=== PATIENT | male | born 1950 | race Caucasian/White ===

== ENCOUNTER 2021-12-08 16:15 | Outpatient (RCR) | payer MEDICARE, BC, SELFPAY | END 2021-12-09 14:01 | disposition home or self-care (01) | PROVIDERS: PCP Family Medicine; Visit Provider Physician Assistant | DX: M25.561 Pain in right knee (principal); Z51.89 Encounter for other specified aftercare; R26.9 Unspecified abnormalities of gait and mobility | CPT/HCPCS: 97110; 97116; 97140; 97161 ==

== ENCOUNTER 2022-03-23 11:15 | Outpatient (RCR) | payer MEDICARE, BC, SELFPAY | END 2022-06-14 08:57 | disposition home or self-care (01) | PROVIDERS: PCP Family Medicine; Visit Provider Physician Assistant | DX: M70.61 Trochanteric bursitis, right hip (principal) | CPT/HCPCS: 97035; 97110; 97140; 97161; 97535 ==

== ENCOUNTER 2022-08-15 15:18 | Outpatient (RCR) | payer MEDICARE, BC, SELFPAY | END 2022-11-15 15:34 | disposition home or self-care (01) | PROVIDERS: PCP Physician Assistant; Visit Provider Family Medicine | DX: M19.012 Primary osteoarthritis, left shoulder (principal); M75.42 Impingement syndrome of left shoulder; M25.512 Pain in left shoulder; M25.561 Pain in right knee; Z51.89 Encounter for other specified aftercare | CPT/HCPCS: 97110; 97162; 97535 ==

== ENCOUNTER 2022-11-11 07:51 | Outpatient (CLI) | payer MEDICARE, BC, SELFPAY | END 2022-11-11 07:52 | disposition home or self-care (01) | LOC: INJ CL 07:52 | PROVIDERS: PCP Physician Assistant; Visit Provider Family Medicine | DX: M54.16 Radiculopathy, lumbar region (principal); M51.36 Other intervertebral disc degeneration, lumbar region | CPT/HCPCS: 62323; J0702; Q9966 ==

== ENCOUNTER 2022-11-30 08:15 | Outpatient (RCR) | payer MEDICARE, BC, SELFPAY | END 2023-02-14 11:19 | disposition home or self-care (01) | PROVIDERS: PCP Physician Assistant; Visit Provider Family Medicine | DX: M47.816 Spondylosis without myelopathy or radiculopathy, lumbar region (principal); M54.16 Radiculopathy, lumbar region; M54.50 Low back pain, unspecified; Z74.09 Other reduced mobility; R53.1 Weakness; R29.3 Abnormal posture; Z51.89 Encounter for other specified aftercare | CPT/HCPCS: 97110; 97112; 97161; 97530 ==

== ENCOUNTER 2023-06-13 07:53 | Outpatient (CLI) | payer MEDICARE, BC, SELFPAY | END 2023-06-13 07:54 | disposition home or self-care (01) | LOC: INJ CL 07:54 | PROVIDERS: PCP Student in an Organized Health Care Education/Training Program; Visit Provider Family Medicine | DX: M54.16 Radiculopathy, lumbar region (principal); M51.36 Other intervertebral disc degeneration, lumbar region | CPT/HCPCS: 62323; J0702; Q9966 ==

== ENCOUNTER 2023-11-28 09:33 | Outpatient (CLI) | payer MEDICARE, BC, SELFPAY | END 2023-11-28 09:34 | disposition home or self-care (01) | LOC: INJ CL 09:33 | PROVIDERS: PCP Student in an Organized Health Care Education/Training Program; Visit Provider Family Medicine | DX: M54.16 Radiculopathy, lumbar region (principal); M51.36 Other intervertebral disc degeneration, lumbar region | CPT/HCPCS: 62323; J0702; Q9966 ==

== ENCOUNTER 2024-08-20 09:31 | Outpatient (CLI) | payer MEDICARE, BC, SELFPAY | END 2024-08-20 09:32 | disposition home or self-care (01) | PROVIDERS: PCP Student in an Organized Health Care Education/Training Program; Visit Provider Family Medicine | DX: M54.16 Radiculopathy, lumbar region (principal); M51.369 Other intervertebral disc degeneration, lumbar region without mention of lumbar back pain or lower extremity pain | CPT/HCPCS: 62323; J0702; Q9966 ==

== ENCOUNTER 2025-01-09 18:54 | Emergency (ER) | payer MEDICARE, BC, SELFPAY ==
--- OUTSIDE RECORDS SUMMARY | 2024-11-13 09:12 | XMS_ITS | Encounter Summary ---
Author Organization [facility] Address [address] [place] [id number] Care Team Providers Care Senior Editor Name Role Phone Elsewhere, Pcp Primary Care Provider Unavailabl e Reason for Referral * Radiation Therapy (Routine) - Authorized Specialty Diagnoses / Procedures Referred By Contac t Referred To Contact Diagnoses Malignant Neoplasm Of Larynx (HCC) Procedures Management Visit Phillip Estrada M.D. [address] [place] [address] Phone: tel: fax: [facility] Region Referral ID Status Reason Start Date Expiration Date V isits Requested Visits Authorized [id number] Authorized 09/30/2024 12/31/2025 10 10 Reason for Visit * Radiation Therapy (Routine) - Authorized Specialty Diagnoses / Procedures Referred By Contac t Referred To Contact Diagnoses Malignant Neoplasm Of Larynx (HCC) Procedures Management Visit Phillip Estrada M.D. [address] [place] [address] Phone: tel: fax: [facility] Region Referral ID Status Reason Start Date Expiration Date V isits Requested Visits Authorized [id number] Authorized 09/30/2024 12/31/2025 10 10 Encounter Details Date Type Department Care Team (Latest Contact Info) Description 11/13/2024 9:12 AM CDT - 12/08/2024 4:38 PM CDT Hospital Encounter Department of Radiation Oncology in [place], [place] [address] [place] [phone] Cm William M.D. [address] [place] [address] Malignant Neoplasm Of Larynx (HCC) Social History Tobacco Use Types Packs/Day Years Used Date Smoking Tobacco: Every Day Cigarettes 1.5 52 Started: 10/15/1969; Last attempted to quit: 10/15/2021 Smokeless Tobacco: Never Comments:quit a couple times . will quit before knee surgury Alcohol Use Standard Drinks/Week Comments Yes 4 (1 standard drink = 0.6 oz pur e alcohol) daily caffeine Humiliation, Afraid, Rape, and Kick questionnair e Answer Date Recorded Within the last year, have y ou been afraid of your partner or ex-partner? No 04/25/2022 Within the last year, have y ou been humiliated or emotionally abused in other ways by your partner or ex-partner? No Within the last year, have y ou been kicked, hit, slapped, or otherwise physically hurt by your partner or ex-partner? No 04/25/2022 Within the last year, have y ou been raped or forced to have any kind of sexual activity by your partner or ex-partner? No 04/25/2022 Hunger Vital Sign Answer Date Recorded Within the past 12 months, y ou worried that your food would run out before you got the money to buy more. Never true 04/25/19 23 Within the past 12 months, t he food you bought just didn't last and you didn't have money to get more. Never true 04/25/2022 PRAPARE - Transportation Answer Date Re corded In the past 12 months, has l ack of transportation kept you from medical appointments or from getting medications? No 12/2022 In the past 12 months, has l ack of transportation kept you from meetings, work, or from getting things needed for daily living? No 04/25/2022 Housing Stability Vital Sign Answer Alon e Recorded In the last 12 months, was t here a time when you were not able to pay the mortgage or rent on time? No 04/25/2022 In the last 12 months, how many places have you lived? 1 04/25/2022 In the last 12 months, was t here a time when you did not have a steady place to sleep or slept in a longterm (including now)? No 04/25/2022 Education Answer Date Recorded What is the highest level of school you have completed or the highest degree you have received? Associate degree: occupational, technical, or vocational program 04/25/2022 Sex and Gender Information Value Date Recorded Sex Assigned at Male 12/24/2020 7:50 PM CDT Legal Sex Male 9:57 AM DISTRICT RECRUITER Gender Identity Male 04/02/2020 9:30 AM DISTRICT RECRUITER Sexual Orientation Straight 04/02/2020 9: 30 AM DISTRICT RECRUITER documented as of this encounter Last Filed Vital Signs Vital Sign Reading Time Taken Comments Blood Pressure 105/67 11/13/2024 10:01 AM CDT Pulse 60 11/13/2024 10:01 AM CDT Temperature 35.9 C (96.7 F) 11/13/2024 10:01 AM CDT Respiratory Rate - - Oxygen Saturation - - Inhaled Oxygen Concentration - - Weight 91.3 kg (201 lb 4.5 oz) 11/13/2024 10:01 AM CDT Height - - Body Mass Index 27.87 10/17/2024 9:23 AM CDT documented in this encounter Medications at Time of Discharge acetaminophen (TYLENOL) 500 mg tablet Take 2 tablets (1,000 mg total) by mouth every 6 (six) hours. 11/05/2021 amiodarone (PACERONE) 200 mg tablet Take 200 mg by mouth every morning. 09/17/2018 amiodarone (Pacerone) 200 mg tablet Take 100 mg by mouth. 12/25/2023 atorvastatin (LIPITOR) 20 mg tablet Take 20 mg by mouth at bedtime. 03/26/2018 atorvastatin (Lipitor) 20 mg tablet Take 20 mg by mouth daily. 09/26/2024 cloNIDine (CATAPRES) 0.2 mg tablet Take 0.2 mg by mouth 4 (four) times a day. 630am, 3pm, bedtime, and 3am. 09/01/2018 diphenhydramine- lidocaine 2 %-antacid (mw) Take 5-10 mL by mouth 4 (four) times a day before meals and bedtime. Swallow solution. Do not eat or drink for 15-30 minutes after use. 480 mL 2 10/31/2024 HYDROcodone-acet aminophen ([place]) 5-325 mg per tablet Take 1 tablet by mouth 3 (three) times a day. 09/10/2024 LORazepam (Ativan) 1 mg tabletIndication s:Malignant Neoplasm Of Larynx (HCC) Take 1 tablet (1 mg total) by mouth as directed. Take 1 tablet 1 hour prior to radiation treatment. Take additional tablet 30 minutes later if desired affect not obtained. 28 tablet 10/01/2024 metoprolol tartrate (LOPRESSOR) 100 mg tablet Take 100 mg by mouth 2 (two) times a day. 0630 am and 3pm 09/09/2016 metoprolol tartrate (Lopressor) 100 mg tablet Take 100 mg by mouth 2 (two) times a day. 07/24/2024 naloxone (Narcan) 4 mg/actuation nasal spray Administer 1 spray (4 mg total) into nostril(s) every 2 (two) minutes as needed (overdose). 1 each 10/31/2024 NIFEdipine (ADALAT CC) 30 mg ER tablet Take 30-60 mg by mouth as directed. One 30 mg tablet in the AM at 630 am and two tablets (60 mg) in the PM at bedtime NIFEdipine XL (Procardia XL) 30 mg 24 hr tablet Take by mouth 1 tab in am, 2 tabs in pm 10/04/2023 oxyCODONE (Roxicodone) 10 mg IR tabletIndication s:Prolonged Acute Pain/Traumatic Injury Take 1 tablet (10 mg total) by mouth every 8 (eight) hours as needed for pain Indication: Prolonged Acute Pain/Traumatic Injury. 10 tablet 11/28/2024 warfarin (COUMADIN) 2 mg tablet Take 3 mg by mouth 5 (five) times a week. 4 mg on Monday and , 3 mg all other days 12/27/2018 documented as of this encounter Progress Notes * Cm William M.D. - 11/13/2024 9:45 AM CDT SUBJECTIVE REASON FOR VISIT Evaluation for side effects while receiving radiation treatment for 1. Malignant Neoplasm Of Larynx (HCC) SUPERVISED BY: Cm William M.D. ([id number]) HISTORY OF PRESENT ILLNESS Mr. Quique Bishop is a 74 y.o. male with squamous cell carcinoma of the larynx who is now undergoing radiation treatment. Treatment Course: 1xLarynx Plan ID Fractions Dose / Fraction (cGy) Dose Treated (cGy) Dose Planned (cGy) First Treatment Last Treatment Elapsed Days [id number] 10/14/2024 11/13/2024 Course Summary 10/14/2024 11/13/2024 The patient was seen and examined today with Dr. William. He reports feeling fairly well overall with moderate to severe fatigue. He reports increase in swallowing pain. He is using magic mouthwash and alternating tylenol and oxycodone and does find these helpful. He reports mild dry mouth. Continues experiencing hoarse voice. He is applying lotion to hisneck twice daily. He denies taste changes or other concerns. He is eating a mostly solid diet. PATIENT REPORTED SYMPTOM SCREEN FATIGUE (Scale: 0 = no fatigue; 10 = worst fatigue you can imagine): 7-8 PAIN (Scale: 0 = no pain; 10 = worst pain you can imagine): 6-7 OVERALL QUALITY OF LIFE (Scale: 0 = as bad as can be; 10 = as good as can be): 6 OBJECTIVE BP 105/67 (BP Location: Right arm, Patient Position: Sitting, Cuff Size: Regular) Pulse 60 Temp(!) 35.9 ??C (Temporal) Wt 91.3 kg BMI 27.87 kg/m?? WEIGHTS 10/17/24: 93.1 kg 10/24/24: 94.2 kg 10/31/24: 93.4 kg 11/07/24: 93.1 kg 11/13/24: 91.3 kg 10% weight loss threshold: 83.79 kg PHYSICAL EXAM General: Alert and oriented in no apparent distress. Skin: Erythema present to anterior neck, no signs of desquamation ASSESSMENT / PLAN #1 Stage I (cT1b, cN0, cM0) squamous cell carcinoma of the larynx #2 Radiation to larynx initiated on October 14, 2024; anticipated date of completion November 20, 2024. The patient is tolerating radiation treatment well overall. He is experiencing anticipated side effects including skin changes, fatigue, and increasing esophagitis. Discussed continued use of his pain meds as they are working. His weight has decreased since his last visit. He will meet with our die trouble shooter tomorrow. Dr. William was in for any questions or concerns. The patient was presented with apain diary which we will assess and discuss in a nurse visit this Monday. He will continue with radiation treatment as planned. He can contact our care team with any questions or concerns. Signed by: Ana Monroe R.N. 11/13/2024 10:03 AM CDT I saw and evaluated the patient and participated in the mancini portions of the service. I reviewed thedocumentation of Ana Monroe R.N. and agree with the findings and plan. The patient appears well on exam. He is tolerating treatment reasonably well with the increasing esophagitis. He will complete a pain diary and meet with our nurse on Monday. He will continue with treatment as planned. Signed by: Cm William M.D. 12/08/2024 4:38 PM CDT [facility] [address] [place] [id number] documented in this encounter Plan of Treatment Upcoming Encounters Date Type Department Care Team (Late st Contact Info) Description 03/05/2025 3:00 PM DISTRICT RECRUITER Appointment Department of Radiation Oncology in [address] [phone] Phillip Estrada M.D. [address] [place] [phone] Scheduled Orders Name Type Priority Associated Diagnoses Orde r Schedule Management Visit Radiation Oncology Routine Malignant Neoplasm Of Larynx (HCC) Once for 1 Occurrences starting 11/13/2024 until 11/13/2024 documented as of this encounter Visit Diagnoses Diagnosis Malignant Neoplasm Of Larynx (HCC) documented in this encounter Care Teams Senior Editor Relationship Specialty Start Date End Date Elsewhere, Pcp PCP - General Internal Medicine 10/28/21 documented as of this encounter
--- OUTSIDE RECORDS SUMMARY | 2024-11-27 10:00 | XMS_ITS | Encounter Summary ---
Author Organization [facility] Address [address] [place] [id number] Care Team Providers Care Health And Fitness Instructor Name Role Phone Elsewhere, Pcp Primary Care Provider Unavailabl e Reason for Referral * Outpatient (Routine) - Closed Specialty Diagnoses / Procedures Referred By Contac t Referred To Contact Phillip Estrada M.D. [address] [place] [phone] Phone: tel: fax: [facility] Region Referral ID Status Reason Start Date Expiration Date Visits Re quested Visits Authorized [id number] Closed 11/19/2024 05/21/2026 1 1 Scheduling Instructions Please schedule to RN Calendar Reason for Visit * Outpatient (Routine) - Closed Specialty Diagnoses / Procedures Referred By Contac t Referred To Contact Phillip Estrada M.D. [address] [place] [address] Phone: tel: fax: [facility] Region Referral ID Status Reason Start Date Expiration Date Visits Re quested Visits Authorized [id number] Closed 11/19/2024 05/21/2026 1 1 Encounter Details Date Type Department Care Team (Latest Contact Info) Description 11/27/2024 10:00 AM CDT - 11/27/2024 2:00 PM CDT Hospital Encounter Department of Radiation Oncology in [address] [place] [phone] Phillip Estrada M.D. [address] [place] [phone] Avril Vergara R.N. [address] [place] [address] Malignant Neoplasm Of Larynx (HCC) (Primary Dx) Social History Tobacco Use Types Packs/Day Years [...] place to sleep or slept in a penitentiary (including now)? No 04/25/2022 Education Answer Date Recorded What is the highest level of school you have completed or the highest degree you have received? Associate degree: occupational, technical, or vocational program 04/25/2022 Sex and Gender Information Value Date Recorded Sex Assigned at Male 12/24/2020 7:50 PM CDT Legal Sex Male 9:57 AM WEALTH MANAGEMENT ADVISOR Gender Identity Male 04/02/2020 9:30 AM WEALTH MANAGEMENT ADVISOR Sexual Orientation Straight 04/02/2020 9: 30 AM WEALTH MANAGEMENT ADVISOR documented as of this encounter Medications at Time of Discharge [...] use. 480 mL 2 10/31/2024 HYDROcodone-acet aminophen ([place]) 5-325 mg per tablet Take 1 tablet [...] in am, 2 tabs in pm 10/04/2023 warfarin (COUMADIN) 2 mg tablet Take 3 mg by mouth 5 (five) times a week. 4 mg on Monday and , 3 mg all other days 12/27/2018 oxyCODONE (Roxicodone) 5 mg immediate release tabletIndication s:Prolonged Acute Pain/Traumatic Injury Take 1 tablet (5 mg total) by mouth every 4 (four) hours as needed for pain Indication: Prolonged Acute Pain/Traumatic Injury. 30 tablet 11/25/2024 5 documented as of this encounter Progress Notes * Avril Vergara, RNevaN. - 11/27/2024 10:00 AM CDT PHONE-CALL FOLLOW UP HISTORY OF PRESENT ILLNESS Mr. Quique Bishop is a 74 y.o. male with larynx cancer. REASON FOR CALL 1 week post radiation assessment ASSESSMENT Patient reports that over the past week his skin has started to open and become more painful. He has initiated vinegar soaks and Xeroform/Aquaphor application. He notes that his skin is more painful than this throat at this time. He is currently taking Oxycodone 10 mg three times daily. The reportsthat this is working well to control his pain. When he is due for pain medication he rates his painan 8 out of 10 and then Oxycodone 10 mg brings down the pain to a 4 out of 10. He notes that a 4 out of 10 is a comfortable number for him. He occasionally takes Tylenol and Magic Mouthwash but feelshe does not get much pain relief from either of those medications. He continues to eat a regular/soft diet. He reports that lack of appetite is more of a deterrent that the pain. He is down 3-4 lbs from last week but reports that he has been forcing himself to eat even when he is not hungry and taking in adequate amounts of fluid. He reports an improvement to his hoarse voice. He will need a refill of his Oxycodone prior to the weekend as he is leaving for out town on December 01 and will be gone through December 05. He requests that his refill be sent to [facility] in [facility] PLAN Discussed with patient that he should try to take scheduled Tylenol not exceeding 4000 mg daily in addition to the Oxycodone to help maximize his pain control. He should also trial utilizing the Magic Mouthwash more frequently prior to meals up to [address] Estrada he will send the Oxycodone refill in on later afternoon or Monday morning. Patient continue with vinegars soak, Xeroform and Aquaphor until the skin is healed. He will contact our care team with any other questions or concerns. Disposition/Recommendation: self-care - appropriate at this time, patient encouraged to call back with questions Information/Education: patient/caller able to teach back Caller agreeable to plan of care: yes The following references were used: provider Dr. Estrada documented in this encounter Plan of Treatment Upcoming Encounters Date Type Department Care Team (Late st Contact Info) Description 03/05/2025 3:00 PM WEALTH MANAGEMENT ADVISOR Appointment Department of Radiation Oncology in [address] [phone] Phillip Estrada M.D. [address] [place] [address] Scheduled Referrals Name Type Priority Associated Diagnoses Orde r Schedule NonF2F phone visit Outpatient Referral Routine Once for 1 Occurrences starting 11/27/2024 until 11/27/2024 documented as of this encounter Visit Diagnoses Diagnosis Malignant Neoplasm Of Larynx (HCC)- Primary documented in this encounter Care Teams Health And Fitness Instructor Relationship Specialty Start Date End Date Elsewhere, Pcp PCP - General Internal Medicine 10/28/21 documented as of this encounter
--- OUTSIDE RECORDS SUMMARY | 2024-12-30 15:08 | XMS_ITS | Encounter Summary ---
Author Organization [facility] Address [address] [place] [address] Care Team Providers Care Dock Operator Name Role Phone Elsewhere, Pcp Primary Care Provider Unavailabl e Reason for Referral * Outpatient (Routine) - Authorized Specialty Diagnoses / Procedures Referred By Kemar montesinos Referred To Contact Radiation Oncology Linnea Brown APRN, C.N.P., D.N.P. [address] [place] [phone] Phone: tel: fax: Phillip Estrada M.D. [address] [place] [phone] Phone: tel: fax: Referral ID Status Reason Start Date Expiration Date V isits Requested Visits Authorized [id number] Authorized 12/30/2024 07/01/2026 [address] neck at [facility] * MRI/CAT/PET Scan (Routine) - Authorized Specialty Diagnoses / Procedures Referred By Contfarhan t Referred To Contact Radiology Diagnoses Malignant Neoplasm Of Larynx (HCC) Procedures CT Neck Soft Tissue with IV Contrast Linnea Brown APRN, C.N.P., D.N.P. [address] [place] [phone] Phone: tel: fax: [facility] Region Referral ID Status Reason Start Date Expiration Date V isits Requested Visits Authorized [id number] Authorized 12/30/2024 04/01/2026 1 1 * Outpatient (Routine) - Closed Specialty Diagnoses / Procedures Referred By Kemar montesinos Referred To Contact Radiation Oncology Phillip Estrada M.D. [address] [place] [phone] Phone: tel: fax: Phillip Estrada M.D. [address] [place] [phone] Phone: tel: fax: Referral ID Status Reason Start Date Expiration Date Visits Re quested Visits Authorized [id number] Closed 11/19/2024 05/21/2026 1 1 Reason for Visit * Outpatient (Routine) - Closed Specialty Diagnoses / Procedures Referred By Kemar montesinos Referred To Contact Radiation Oncology Phillip Estrada M.D. [address] [place] [phone] Phone: tel: fax: Phillip Estrada M.D. [address] [place] [phone] Phone: tel: fax: Referral ID Status Reason Start Date Expiration Date Visits Re quested Visits Authorized [id number] Closed 11/19/2024 05/21/2026 1 1 Encounter Details Date Type Department Care Team (Latest Contact Info) Description 12/30/2024 3:08 PM CDT - 01/01/2025 1:17 PM CDT Hospital Encounter Department of Radiation Oncology in [address] [place] [phone] Phillip Estrada M.D. [address] [place] [phone] Malignant Neoplasm Of Larynx (HCC) (Primary Dx) [...] place to sleep or slept in a custodial (including now)? No 04/25/2022 Education Answer Date Recorded What is the highest level of school you have completed or the highest degree you have received? Associate degree: occupational, technical, or vocational program 04/25/2022 Sex and Gender Information Value Date Recorded Sex Assigned at Male 12/24/2020 7:50 PM CDT Legal Sex Male 9:57 AM TEST AND TURN UP TECHNICIAN Gender Identity Male 04/02/2020 9:30 AM TEST AND TURN UP TECHNICIAN Sexual Orientation Straight 04/02/2020 9: 30 AM TEST AND TURN UP TECHNICIAN documented as of this encounter Last Filed Vital Signs Vital Sign Reading Time Taken Comments Blood Pressure 116/78 12/30/2024 3:28 PM CDT Pulse 77 12/30/2024 3:28 PM CDT Temperature 36.2 C (97.2 F) 12/30/2024 3:28 PM CDT Respiratory Rate - - Oxygen Saturation - - Inhaled Oxygen Concentration - - Weight 90.8 kg (200 lb 2.8 oz) 12/30/2024 3:28 P M CDT Height - - Body Mass Index 27.72 10/17/2024 9:23 AM CDT documented in this [...] use. 480 mL 2 10/31/2024 HYDROcodone-acet aminophen ([place]) 5-325 mg per tablet Take 1 tablet [...] as of this encounter Progress Notes * Linnea Brown APRN, C.N.P., D.N.P. - 12/30/2024 3:30 PM CDT SUBJECTIVE DIAGNOSIS 1. Malignant Neoplasm Of Larynx (HCC) SUPERVISED BY: Phillip Estrada M.D. HISTORY OF PRESENT ILLNESS Mr. Quique Bishop is a 74 y.o. male with squamous cell carcinoma of the larynx. He completed definitive radiation treatment in November 2024. He returns for follow up. His oncologic history is as follows: Oncology History Malignant Neoplasm Of Larynx (HCC) 07/18/2024 Other Patient evaluated by PCP for hoarseness of voice that began around [place]. Trialed 5 day course of antibiotics with no improvement. Referral to ENT 09/11/2024 Biopsy/Pathology Direct Laryngoscopy, rigid esophagoscopy laryngoscopy with examination of the postcricoid region, both piriform sinuses, supraglottic structures including epiglottis false vocal cords and arytenoids and oropharynx. All these areas were normal. The microscope was used to examine the glottis and fine there is granular red thickened tissue centered on the anterior commissure and more involvement of the left anterior one third of the true vocal cord. The carcinoma appeared to be involving the anterior commissure and both the left and right anterior 1/3 of the true vocal cords. There was more extension posteriorly on the left cord. Suspect there is some involvement of the middle one third of the left cord but not the middle one third of the right cord. No extension transglottic. Cords seem mobile with use of the suction and also he had no evidence of vocal cord paralysis on previous fiberoptic laryngoscopy Final Diagnosis A. Larynx, left true vocal cord anterior 1/3, biopsy: - Squamous cell carcinoma, keratinizing. B. Larynx, right vocal cord anterior 1/3, biopsy: - Squamous cell carcinoma, keratinizing. C. Larynx, right vocal cord middle 1/3, biopsy: - Keratotic squamous mucosa with moderate to severe dysplasia. D. Larynx, left vocal cord middle 1/3, biopsy: - Squamous cell carcinoma, keratinizing. E. Larynx, left vocal cord anterior 1/3, biopsy: - Squamous cell carcinoma, keratinizing. 09/23/[address] neck soft tissue Impression 1. No adenopathy. 2. Normal deep soft tissues of the neck. Specifically, close apposition of the vocal cords at the level of the glottis. No evidence of discrete soft tissue mass or abnormal enhancement of the mucosa or submucosa of the glottis or supraglottic and subglottic airways. 3. Cervical spondylosis CT chest Impression: No acute abnormality in the chest. No concerning pulmonary nodules. 10/14/2024 - 11/20/2024 Radiation Therapy Radiation Therapy Treatment Details (10/14/2024 - 11/20/2024) Site: Bilateral Larynx Technique: 3D DEMOLITIONIST Goal: Curative Dose: 6300 cGy Fraction: 28 INTERVAL HISTORY The patient was seen and examined today with Dr. Estrada. The patient reports doing well overall. He reports significant improvement since finishing radiation treatment. He is no longer having any pain or skin changes in the neck. His skin has completely healed from radiation dermatitis. He denies any swallowing pain currently. He had 1 episode of chokingon chicken a couple of weeks ago but this has recovered and no concerns outside of this incident. He also reports significant improvement in his voice which he is very happy with. He denies any dry mouth, taste changes, neck swelling, or neck range of motion concerns. His ECOG performance status is0. REVIEW OF SYSTEMS Review of systems was negative except as documented above. OBJECTIVE BP 116/78 (BP Location: Right arm, Patient Position: Sitting, Cuff Size: Regular) Pulse 77 Temp36.2 ??C (Temporal) Wt 90.8 kg BMI 27.72 kg/m?? PHYSICAL EXAM General: Patient is alert and oriented in no apparent distress. ASSESSMENT / PLAN #1 Stage I (cT1b, cN0, cM0) squamous cell carcinoma of the larynx #2 Radiation to larynx completed November 20, 2024. Current status: No evidence of disease after initial definitive treatment of localized disease. It was a pleasure to meet with Quique today. He is recovered well following radiation treatment now5 weeks ago. He really is not experiencing any more side effects at this time. We will see . Quique Bishop in a follow-up visit in [address] neck at [facility]. We will plan to start monitoring his thyroid levels 1 year posttreatment. Patient seen in collaboration with Dr. Estrada, please review his attestation for additional information. The patient was asked to contact us with questions or concerns. He verbally expressed his understanding ofthe plan. EDUCATION Ready to learn, no apparent learning barriers were identified; learning preferences include listening. Explained diagnosis and treatment plan; patient expressed understanding of the content. I personally spent 20 minutes in care of the patient today. Time includes both non face to face andface to face patient care. Signed by: Linnea Brown APRN, C.N.P., D.N.P. 12/30/2024 3:53 PM CDT [facility] [address] [place] [address] Cosigned by Phillip Estrada M.D. at 01/01/2025 1:17 PM CDT Associated attestation - Phillip Estrada M.D. - 01/01/2025 1:17 PM CDT I saw the patient with Linnea Brown and I agree with her note. Overall he is doing well in his voices improved even relative to what it was prior to treatment. Nosignificant dysphagia or odynophagia. I did perform a fiberoptic laryngoscopy via the right naris after application of 4% topical lidocaine spray. The visualized portions of the nasal cavity and nasopharynx are unremarkable. Visualized oropharynx was unremarkable. Base of tongue and vallecula and epiglottis were all within normal limits. The piriform sinuses and trend false vocal folds were visualized and there was no evidence of anymalignant lesion. The vocal cords were freely mobile bilaterally. No evidence of disease after initial definitive treatment of localized disease. Overall he is doing well and we will see him back with imaging in 2-3 months documented in this encounter Plan of Treatment Upcoming Encounters Date Type Department Care Team (Late st Contact Info) Description 03/05/2025 3:00 PM TEST AND TURN UP TECHNICIAN Appointment Department of Radiation Oncology in [place], [place] [address] [place] [phone] Phillip Estrada M.D. [facility] [place] [phone] Scheduled Orders Name Type Priority Associated Diagnoses Orde r Schedule Creatinine with Estimated GFR Lab Routine Malignant Neoplasm Of Larynx (HCC) Expected: 03/01/2025, Expires: 03/31/2026 CT Neck Soft Tissue with IV Contrast Imaging RAD - Routine (most inpatients and all outpatients) Malignant Neoplasm Of Larynx (HCC) Expected: 03/01/2025, Expires: 03/31/2026 Scheduled Referrals Name Type Priority Associated Diagnoses Order Schedule Radiation Oncology office visit (clinic) Outpatient Referral Routine Once for 1 Occurrences starting 12/30/2024 until 12/30/2024 Radiation Oncology office visit (clinic) Outpatient Referral Routine Expected: 03/05/2025, Expires: 03/31/2026 documented as of this encounter Visit Diagnoses Diagnosis Malignant Neoplasm Of Larynx (HCC)- Primary documented in this encounter Care Teams Dock Operator Relationship Specialty Start Date End Date Elsewhere, Pcp PCP - General Internal Medicine 10/28/21 documented as of this encounter
--- OUTSIDE RECORDS SUMMARY | 2025-01-09 18:57 | XMS_ITS | Encounter Summary ---
Author Organization [facility] Address [address] [place] [address] Care Team Providers Care Plate Printer Name Role Phone Festus Larsen DO Primary Care Provider [phone] Encounter Details Date Type Department Care Team ([facility] Contact Info) Description 01/03/2025 Results Follow-Up [facility] [address] [facility] [address] [place] [address] Lilia Leal RN [address] [facility] [address] [place] [address] Social History Tobacco Use Types Packs/Day Years Used Date Smoking Tobacco: Every Day Cigarettes 0.5 50 Smokeless Tobacco: Never Comments:quit off and on Alcohol Use Standard Drinks/Week Comments Yes 2 (1 standard drink = 0.6 oz pure alcohol) Alcoholic Drinks/day: 1-2 drinks per day AUDIT-C Answer Date Recorded Frequency of Alcohol Consumption Never 04/22/2019 Average Number of Drinks Not on file 020 Frequency of Binge Drinking Not on file 09/2019 Sex and Gender Information Value Date Recorded Sex Assigned at Not on file Legal Sex Male 7:11 PM EDT Gender Identity Not on file Sexual Orientation Not on file documented as of this encounter Plan of Treatment Upcoming Encounters Date Type Department Care Team ([facility] Contact Info) Description 01/10/2025 1:40 PM CDT Office Visit [facility] [address] [facility] [address] [place] [address] Cm Grififn MD [address] [place] [address] documented as of this encounter Visit Diagnoses Not on filedocumented in this encounter Care Teams Plate Printer Relationship Specialty Start Date End Date Festus Larsen DO [address] [place] [address] PCP - General Family Medicine 03/22/23 documented as of this encounter
--- OUTSIDE RECORDS SUMMARY | 2025-01-09 18:57 | XMS_ITS | Encounter Summary ---
Author Organization [facility] Address [address] [place] [address] Care Team Providers Care Area Field Person Name Role Phone Festus Larsen DO Primary Care Provider [phone] Reason for Visit * Reason Onset Date Comments Med Refill 01/01/2025 Encounter Details Date Type Department Care Team (Late st Contact Info) Description 01/01/2025 Ref[facility] [address] [facility] [address] [place] [address] Yoko Jordan, RN [address] [place] [address] Essential (primary) hypertension Social History Tobacco Use Types Packs/Day Years [...] on file documented as of this encounter Miscellaneous Notes * Telephone Encounter - Yoko Jordan RN - 01/01/2025 3:01 PM CDT RTC 01/10. Last prescribed by Ca. documented in this encounter Plan of Treatment Upcoming Encounters Date Type Department Care Team (Late st Contact Info) Description 01/10/2025 1:40 PM CDT Office Visit [facility] [address] [place] [phone] Cm Griffin MD [address] [place] [address] documented as of this encounter Visit Diagnoses Diagnosis Essential (primary) hypertension documented in this encounter Care Teams Area Field Person Relationship Specialty Start Date End Date Festus Larsen DO [address] [place] [address] PCP - General Family Medicine 03/22/23 documented as of this encounter
--- OUTSIDE RECORDS SUMMARY | 2025-01-09 18:57 | XMS_ITS | Clinical Summary ---
Author Organization [facility] Address [address] [place] [address] Phone Care Team Providers Care Drill Operator Name Role Phone Festus Larsen Primary Care Provider [phone] Allergies Active Allergy Reactions Criticality Noted Date Comments Ibuprofen Other (see comments) High 01/17/2014 States he was told years ago not to take it due to damage to kidney Ketorolac Other (see comments) High 05/01/2019 Pt is not allowed to take due to kidney damage. Medications atorvastatin (LIPITOR) 20 MG tablet Take 1 tablet by mouth 1 (one) time each day Active metoprolol tartrate (LOPRESSOR) 100 MG tablet Take 1 tablet by mouth 2 (two) times a day 7 Active warfarin (COUMADIN) 2 MG tablet Take 2 tablets by mouth Or as directed by INR. Active cholecalciferol (VITAMIN D-3) 25 MCG (1000 UT) tablet Take 2 tablets by mouth daily 8 Active cloNIDine (CATAPRES) 0.2 MG tablet Take 2 tablets by mouth in the morning and 2 tablets in the evening. 2 Active HYDROcodone-acet aminophen (NORCO) 5-325 MG per tablet Take 1-3 tablets by mouth every 6 (six) hours if needed for moderate pain Active amiodarone (PACERONE) 200 MG tablet 100 mg 4 Active NIFEdipine XL (PROCARDIA XL) 30 MG 24 hr tabletIndication s:Essential (primary) hypertension Take by mouth 1 tab in am, 2 tabs in pm 270 tablet 2 5 Active NIFEdipine XL (PROCARDIA XL) 30 MG 24 hr tabletIndication s:Essential (primary) hypertension Take by mouth 1 tab in am, 2 tabs in pm 270 tablet 3 4 01/02/20 25 Discontinu ed(Reorder (does not appear on AVS)) NIFEdipine XL (PROCARDIA XL) 30 MG 24 hr tabletIndication s:Essential (primary) hypertension Take by mouth 1 tab in am, 2 tabs in pm 270 tablet 3 5 01/04/20 25 Discontinu ed(Reorder (does not appear on AVS)) Active Problems Problem Noted Date Diagnosed Date Hyperparathyroidism due to renal insufficiency 0 04/22/2019 Hypertensive renal disease 04/22/2019 Vitamin D deficiency 06/13/2017 Chronic kidney disease stage 3 02/27/2014 Encounters Date Type Department Care Team Description 01/03/2025 Telephone [facility] [address] [place] [address] Lilia Leal RN 01/03/2025 Results Follow-Up [facility] [address] [place] [address] Lilia Leal RN 01/02/2025 Telephone [facility] [address] [place] [address] Gladis Rojas 01/01/2025 Refill [facility] [address] [facility] [address] [place] [address] Yoko Jordan, JARETT Essential (primary) hypertension 12/31/2024 Telephone [facility] [address] [facility] [address] [place] [address] Crystal Gladis 12/24/2024 Orders Only [facility] [address] [place] [address] Cm Griffin MD Stage 3b chronic kidney disease (HCC); Hypertensive renal disease 12/18/2024 Office Communication [facility] [address] [place] [address] Scott Wiley from Last 3 Months Immunizations Immunization Administration Dates Next Due Pfizer SARS-COV-2 01/11/2022,02/11/2021,07/11/19 21,06/19/2020 Pneumococcal Conjugate Pcv 20 09/26/2022 Family History Medical History Relation Comments Cancer Brother Cancer Mother Stroke Mother Cancer Sibling Relation Status Comments Brother Father Mother Sibling Social History Tobacco Use Types Packs/Day Years Used Date Smoking Tobacco: Every Day Cigarettes 0.5 50 Smokeless Tobacco: Never Tobacco Cessation:Ready to Q uit: Not Asked; Counseling Given: Not Answered Comments:quit off and on Alcohol Use Standard [...] on file Sexual Orientation Not on file Last Filed Vital Signs Vital Sign Reading Time Taken Comments Blood Pressure 118/76 06/21/2024 10:40 AM RICE DRIER OPERATOR Pulse 53 06/21/2024 10:40 AM RICE DRIER OPERATOR Temperature - - Respiratory Rate - - Oxygen Saturation 96% 01/04/2024 2:42 PM CDT Inhaled Oxygen Concentration - - Weight 94.3 kg (208 lb) 06/21/2024 10:40 AM RICE DRIER OPERATOR Height 182.9 cm (6') 01/04/2024 2:42 PM CDT Body Mass Index 28.21 01/04/2024 2:42 PM CDT Plan of Treatment Upcoming Encounters Date Type Department Care Team (Late st Contact Info) Description 01/10/2025 1:40 PM CDT Office Visit [facility] [address] [place] [phone] Cm Griffin MD [address] [place] [address] Health Maintenance Due Date Last Done Comments Colorectal Cancer Screening: Annual FOBT 2001 Colorectal Cancer Screening: Colonoscopy 2001 Colorectal Cancer Screening: Sigmoidoscopy 2001 Influenza Vaccine (#1) 2024 01/31/2023 Pneumococcal Vaccine: 50+ Years Completed Pneumococcal Vaccine: Peds ( 0 to 5 Years) and At-Risk Patients (6 to 49 Years) Discontinued 09/26/2022 Hepatitis B Vaccine Aged Out No longe r eligible based on patient's age to complete this topic Procedures Procedure Name Priority Date/Time Associated Diagnosis Comments CYSTATIN C WITH EGFR Routine 01/02/2025 1:35 PM CDT Stage 3b chronic kidney disease (HCC) Hypertensive renal disease URINE ALBUMIN / CREATININE RATIO Routine 01/02/2025 1:35 PM CDT Stage 3b chronic kidney disease (HCC) Hypertensive renal disease PTH, INTACT Routine 01/02/2025 1:35 PM CDT Stage 3b chronic kidney disease (HCC) Hypertensive renal disease HEMOGLOBIN Routine 01/02/2025 1:35 PM CDT Stage 3b chronic kidney disease (HCC) Hypertensive renal disease RENAL FUNCTION PANEL Routine 01/02/2025 1:35 PM CDT Stage 3b chronic kidney disease (HCC) Hypertensive renal disease from Last 3 Months Results * (ABNORMAL) Cystatin C with Estimated Glomerular Filtration Rate (eGFR), Serum (01/02/2025 1:35 PM CDT) Cystatin C 2.50(H) 0.52 - 1.16 mg/L [facility] eGFR (Calc) 22(L) > OR = 60 mL/min/1.73 m2 [facility] 01/02/2025 1:35 PM CDT 01/02/2025 1:36 PM CDT Narrative Resulting Agency Comment Performing Organization Information: Site ID: [id number] Name: [facility] [employer] Address: [address] [address] Director: Brisa Andersen MD Cm Griffin MD LAB BLOOD ORDERABLES Final Resul t Performing Organization Address [facility] Co de Phone Number [facility] [employer] [address] [place] [address] * (ABNORMAL) Urine Albumin / Creatinine Ratio (01/02/2025 1:35 PM CDT) Creatinine, Ur 115 20 - 320 mg/dL [facility] Urine Microalbumin 34.8 See Note: mg/dL [facility] Comment: Reference Range: Reference Range Not established Verified by repeat analysis. Microalb/Creat Ratio 303(H) <30 mg/g creat [facility] Comment: The ADA defines abnormalities in albumin excretion as follows: Albuminuria Category Result (mg/g creatinine) Normal to Mildly increased <30 Moderately increased 30-299 Severely increased > OR = 300 The ADA recommends that at least two of three specimens collected within a 3-6 month period be abnormal before considering a patient to be within a diagnostic category. Urine specimen (specimen) Urine specimen obtained by clean catch procedure / Unknown 01/02/2025 1:35 PM CDT 01/02/2025 1:36 PM CDT Narrative Resulting Agency Comment Performing Organization Information: Site ID: CB Name: [facility] Harrington Address: [address] [place] [phone] Director: Oni Sanchez Cm Griffin MD LAB URINE ORDERABLES Final Resul t Performing Organization Address [facility] Co de Phone Number [employer] [facility] [employer] [facility] [address] * Hemoglobin (01/02/2025 1:35 PM CDT) Hemoglobin 14.3 13.2 - 17.1 g/dL [facility] [employer] [facility] Blood specimen (specimen) Venous blood / Unknown 01/02/2025 1:35 PM CDT 01/02/2025 1:36 PM CDT Narrative Resulting Agency Comment Performing Organization Information: Site ID: CB Name: Deepak Harrington Address: [address] [place] [phone] Director: Oni Sanchez us Cm Griffin MD LAB BLOOD ORDERABLES Final Resul t Performing Organization Address City/[facility] Co de Phone Number [facility] [address] [place] [address] * (ABNORMAL) PTH, Intact (01/02/2025 1:35 PM CDT) Parathyroid Hormone, Intact 103(H) 16 - 77 pg/mL [facility] Comment: Interpretive Guide Intact PTH Calcium ------- Normal Parathyroid Normal Normal Hypoparathyroidism Low or Low Normal Low Hyperparathyroidism Primary Normal or High High Secondary High Normal or Low Tertiary High High Non-Parathyroid Hypercalcemia Low or Low Normal High Blood specimen (specimen) Venous blood / Unknown 01/02/2025 1:35 PM CDT 01/02/2025 1:36 PM CDT Narrative Resulting Agency Comment Performing Organization Information: Site ID: CB Name: Deepak Harrington Address: [address] [place] [phone] Director: Oni Sanchez us Cm Griffin MD LAB BLOOD ORDERABLES Final Resul t Performing Organization Address City/[facility]/ZIP Co de Phone Number [facility] [address] [place] [address] * (ABNORMAL) Renal Function Panel (01/02/2025 1:35 PM CDT) Glucose 97 65 - 99 mg/dL [facility] Comment: Fasting reference interval BUN 28(H) 7 - 25 mg/dL [facility] Creatinine 2.33(H) 0.70 - 1.28 mg/dL [facility] eGFR CKD-EPI CR 2020 29(L) > OR = 60 mL/min/1.7 3m2 [facility] BUN/Creatinine Ratio 12 6 - 22 (calc) [facility] Sodium 137 135 - 146 mmol/L [facility] Potassium 4.3 3.5 - 5.3 mmol/L [facility] Chloride 104 98 - 110 mmol/L [facility] Bicarbonate (CO2) 27 20 - 32 mmol/L [facility] Calcium 8.8 8.6 - 10.3 mg/dL [facility] Phosphorus 3.7 2.1 - 4.3 mg/dL [facility] Albumin 4.1 3.6 - 5.1 g/dL [facility] Blood specimen (specimen) Venous blood / Unknown 01/02/2025 1:35 PM CDT 01/02/2025 1:36 PM CDT Narrative Resulting Agency Comment Performing Organization Information: Site ID: CB Name: Deepak Harrington Address: [address] [place] [phone] Director: Oni Sanchez us Cm Griffin MD LAB BLOOD ORDERABLES Final Resul t [facility] Deepak Harrington [address] [place] [phone] from Last 3 Months Insurance [facility] Medicare Care Teams Drill Operator Relationship Specialty Start Date End Date Festus Larsen DO [address] [place] [address] PCP - General Family Medicine 03/22/23
--- OUTSIDE RECORDS SUMMARY | 2025-01-09 18:57 | XMS_ITS | Encounter Summary ---
Author Organization [facility] Address [address] [place] [address] Care Team Providers Care Radiology Practitioner Assistant Name Role Phone Festus Larsen DO Primary Care Provider [phone] Encounter Details Date Type Department Care Team ([facility] st Contact Info) Description 01/02/2025 Telephone [facility] [place] [address] [place] [address] Gladis Rojas [address] [place] [address] Social History Tobacco Use Types Packs/Day Years [...] encounter Miscellaneous Notes * Telephone Encounter - Peyton March - 01/02/2025 2:02 PM CDT [facility] Berg[facility] calling, need pvl orders, pt. currently in lab, provides 2 fax #'s,[phone] and [phone], faxed at this time * Telephone Encounter - RojasGladis ojeda - 01/02/2025 10:55 AM CDT Left a voicemail reminding patient to have previsit labs completed prior to their visit. Faxed order to Zully Bergman. Asked patient to call back if they would like the orders faxed elsewhere or if they would like to schedule with [facility] lab. documented in this encounter Plan of Treatment Upcoming Encounters Date Type Department Care Team (Late st Contact Info) Description 01/10/2025 1:40 PM CDT Office Visit [facility] [address] [place] [address] Cm Griffin MD [address] [place] [address] documented as of this encounter Visit Diagnoses Not on filedocumented in this encounter Care Teams Radiology Practitioner Assistant Relationship Specialty Start Date End Date Festus Larsen DO [address] [place] [address] PCP - General Family Medicine 03/22/23 documented as of this encounter
--- OUTSIDE RECORDS SUMMARY | 2025-01-09 18:57 | XMS_ITS | Encounter Summary ---
Author Organization [facility] Address [address] [place] [address] Care Team Providers Care Rn Ent Name Role Phone Festus Larsen DO Primary Care Provider [phone] Encounter Details Date Type Department Care Team (Late st Contact Info) Description 12/31/2024 Telephone [facility] [place] [address] [place] [address] Gladis Rojas [address] [place] [address] Social History Tobacco Use Types [...] encounter Miscellaneous Notes * Telephone Encounter - Gladis Rojas - 12/31/2024 9:21 AM CDT Spoke to pt regarding pvls.Pt states he has appt 01/02 documented in this encounter Plan of Treatment Upcoming Encounters Date Type Department Care Team (Late st Contact Info) Description 01/10/2025 1:40 PM CDT Office Visit [facility] [address] [place] [address] Cm Griffin MD [address] [place] [address] documented as of this encounter Visit Diagnoses Not on filedocumented in this encounter Care Teams Rn Ent Relationship Specialty Start Date End Date Festus Larsen DO [address] [place] [address] PCP - General Family Medicine 03/22/23 documented as of this encounter
--- OUTSIDE RECORDS SUMMARY | 2025-01-09 18:57 | XMS_ITS | Encounter Summary ---
Author Organization [facility] Address [address] [place] [address] Care Team Providers Care Family Court Registrar Name Role Phone Festus Larsen DO Primary Care Provider [phone] Encounter Details Date Type Department Care Team ([facility] st Contact Info) Description 01/03/2025 Telephone [facility] [place] [address] [facility] [address] [place] [address] Lilia Leal, RN [address] [facility] [address] [place] [address] Social History Tobacco Use Types [...] encounter Miscellaneous Notes * Telephone Encounter - Lilia Leal RN - 01/03/2025 11:23 AM CDT Patient is requesting refill on nifedipine. Refill completed per protocol. documented in this encounter Plan of Treatment Upcoming Encounters Date Type Department Care Team (Late st Contact Info) Description 01/10/2025 1:40 PM CDT Office Visit [facility] [address] [place] [address] Cm Griffin MD [address] [place] [address] documented as of this encounter Visit Diagnoses Diagnosis Essential (primary) hypertension documented in this encounter Care Teams Family Court Registrar Relationship Specialty Start Date End Date Festus Larsen DO [address] [place] [address] PCP - General Family Medicine 03/22/23 documented as of this encounter
--- OUTSIDE RECORDS SUMMARY | 2025-01-09 18:57 | XMS_ITS | Encounter Summary ---
Author Organization [facility] Address [address] [place] [address] Care Team Providers Care Speech Professor Name Role Phone Festus Larsen DO Primary Care Provider [phone] Encounter Details Date Type Department Care Team ([facility] st Contact Info) Description 12/18/2024 Office Communication [facility] [place] [address] [facility] [address] [place] [address] Scott Wiley [address] [place] [address] Social History Tobacco Use Types [...] encounter Miscellaneous Notes * Telephone Encounter - Scott Wiley - 12/18/2024 11:58 AM CDT Pt wants labs faxed to [facility]ERV[facility]ES for 01/10 appt. documented in this encounter Plan of Treatment Upcoming Encounters Date Type Department Care Team (Late st Contact Info) Description 01/10/2025 1:40 PM CDT Office Visit [facility] [place] [address] [place] [address] Cm Griffin MD [address] [place] [address] documented as of this encounter Visit Diagnoses Not on filedocumented in this encounter Care Teams Speech Professor Relationship Specialty Start Date End Date Festus Larsen DO [address] [place] [address] PCP - General Family Medicine 03/22/23 documented as of this encounter
--- OUTSIDE RECORDS SUMMARY | 2025-01-09 18:57 | XMS_ITS | Encounter Summary ---
Author Organization [facility] Address [address] [facility] [address] [place] [address] Care Team Providers Care Managed Care Liaison Name Role Phone Festus Larsen DO Primary Care Provider [phone] Encounter Details Date Type Department Care Team ([facility] Contact Info) Description 12/24/2024 Orders Only [facility] [place] [address] [facility] [address] [place] [address] Cm Griffin MD [address] [employer] [facility] [address] [place] [address] Stage 3b chronic kidney disease (HCC); Hypertensive renal disease Social History Tobacco Use Types Packs/Day Years [...] Upcoming Encounters Date Type Department Care Team ([facility] Contact Info) Description 01/10/2025 1:40 PM CDT Office Visit [facility] [address] [facility] [address] [place] [address] Cm Griffin MD [address] [place] [address] documented as of this encounter Procedures Procedure Name Priority Date/Time Associated Diagnosis [...] chronic kidney disease (HCC) Hypertensive renal disease documented in this encounter Results * (ABNORMAL) Cystatin C with Estimated Glomerular Filtration Rate (eGFR), Serum (01/02/2025 1:35 PM CDT) Cystatin C 2.50(H) 0.52 - 1.16 mg/L [facility] eGFR (Calc) 22(L) > OR = 60 mL/min/1.73 m2 [facility] 01/02/2025 1:35 PM CDT 01/02/2025 1:36 PM CDT Narrative Resulting Agency Comment Performing Organization Information: Site ID: [place] Name: [facility] Address: [address] [address] Director: Brisa Andersen MD us Cm Griffin MD LAB BLOOD ORDERABLES Final Resul t [facility] [address] [address] * (ABNORMAL) Urine Albumin / Creatinine Ratio (01/02/2025 1:35 PM CDT) Creatinine, Ur 115 20 - 320 mg/dL [facility] Urine Microalbumin 34.8 See Note: mg/dL [facility] Comment: Reference Range: Reference Range Not established Verified by repeat analysis. Microalb/Creat Ratio 303(H) <30 mg/g creat [facility] Len Comment: The ADA defines abnormalities in [...] Agency Comment Performing Organization Information: Site ID: Name: [facility] Address: [address] [place] [phone] Director: Oni Sanchez us Cm Griffin MD LAB URINE ORDERABLES Final Resul t [facility] [address] [place] [phone] * (ABNORMAL) PTH, Intact (01/02/2025 1:35 PM CDT) Parathyroid Hormone, Intact 103(H) 16 - 77 pg/mL [facility] Freye Comment: Interpretive Guide Intact PTH Calcium ------- [...] Site ID: CB Name: Deepak Harrington Address: [address] [place] [phone] Director: Oni Sanchez Cm Griffin MD LAB BLOOD ORDERABLES Final Resul t Performing Organization Address City/[facility]/ZIP Co de Phone Number [facility] Deepak Harrington [address] [place] [address] * Hemoglobin (01/02/2025 1:35 PM CDT) Hemoglobin 14.3 13.2 - 17.1 g/dL [facility] Har[facility] Blood specimen (specimen) Venous blood / Unknown 01/02/2025 1:35 PM CDT 01/02/2025 1:36 PM CDT Narrative Resulting Agency Comment Performing Organization Information: Site ID: CB Name: Deepak Harrington Address: [address] [place] [phone] Director: Oni Sanchez Cm Griffin MD LAB BLOOD ORDERABLES Final Resul t Performing Organization Address [facility] de Phone Number [facility] Deepak Harrington [address] [place] [address] * (ABNORMAL) Renal Function Panel (01/02/2025 1:35 PM CDT) Glucose 97 65 - 99 mg/dL [facility] Comment: Fasting reference interval BUN 28(H) 7 - 25 mg/dL [facility] Creatinine 2.33(H) 0.70 - 1.28 mg/dL [facility] eGFR CKD-EPI CR 2020 29(L) > OR = 60 mL/min/1.7 3m2 [facility] BUN/Creatinine Ratio 12 6 - 22 (calc) [facility] Sodium 137 135 - 146 mmol/L [facility] Potassium 4.3 3.5 - 5.3 mmol/L [facility] Chloride 104 98 - 110 mmol/L [facility] [...] Site ID: CB Name: Deepak Harrington Address: [address] [place] [phone] Director: Oni Sanchez us Cm Griffin MD LAB BLOOD ORDERABLES Final Resul t [facility] Deepak Harrington [address] [place] [phone] documented in this encounter Visit Diagnoses Diagnosis Stage 3b chronic kidney disease (HCC) Hypertensive renal disease documented in this encounter Care Teams Managed Care Liaison Relationship Specialty Start Date End Date Festus Larsen DO [address] [place] [address] PCP - General Family Medicine 03/22/23 documented as of this encounter
--- OUTSIDE RECORDS SUMMARY | 2025-01-09 18:58 | XMS_ITS | Encounter Summary ---
Author Organization [facility] Address [address] [place] [address]. [place] [address] Care Team Providers Care Production Expert Name Role Phone Yuniel Mcmillan MD Primary Care Provider [phone] Gene Lopez MD Unavailable [phone] Festus Larsen DO Primary Care Provider [phone] Encounter Details Date Type Department Care Team (Late st Contact Info) Description 12/14/2018 MyC Medical Advice [facility] Care Coordination, Ambulatory [address] [place] [address] Merle Medinaricrenard [facility] Social History Tobacco Use Types Packs/Day Years Used Date Smoking Tobacco: Never Assessed Sex and Gender Information Value Date Recorded Sex Assigned at Not on file Legal Sex Male 10:57 AM CDT Gender Identity Not on file Sexual Orientation Not on file documented as of this encounter Plan of Treatment Not on file documented as of this encounter Visit Diagnoses Not on filedocumented in this encounter Care Teams Production Expert Relationship Specialty Start Date End Date Yuniel Mcmillan MD [facility] [address] [place] [address] PCP - General 01/14/19 08/29/24 Festus Larsen DO [address] [place] [address] PCP - General 08/30/24 Gene Lopez MD [address] [facility] [address] [place] [address] Assigned Musculoskeletal Provider 02/07/20 07/18/20 documented as of this encounter
--- OUTSIDE RECORDS SUMMARY | 2025-01-09 18:58 | XMS_ITS ---
Author Organization [facility] Address [address] [place] [address] Care Team Providers Care Beet Flumer Name Role Phone Elsewhere, Pcp Primary Care Provider Unavailabl e Active Problems * This document contains information received from the source organization and may not represent a complete record from that organization. 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 Past Treatment and Therapy Plans No past plan information found. Past Radiation Episodes * 3D TUCKPOINTER CLEANER CAULKER: Bilateral LarynxOverview* First Treatment Date Last Treatment Date Treatment Site Technique Goal Episode Provider 10/14/2024 11/20/2024 Bilateral Larynx 3D TUCKPOINTER CLEANER CAULKER Curative * Linked Problems Malignant Neoplasm Of Larynx Treatment Courses* Course 1xLarynx 10/14/2024 - 11/20/2024 Treatment Period Fraction Dose Fractions Total Dose Plans Planned [id number] 10/14/2024 - 11/20/2024 225 cGy / 28 6 ,300 cGy Reference Points Delivered [id number] 10/14/2024 - 11/20/2024 6,300 cGy
--- OUTSIDE RECORDS SUMMARY | 2025-01-09 18:58 | XMS_ITS | Encounter Summary ---
Author Organization [facility] Address [address] [place] [address] Care Team Providers Care Octave Board Assembler Name Role Phone Yuniel Mcmillan MD Primary Care Provider [phone]- [phone] Gene Lopez MD Unavailable Festus Larsen DO Primary Care Provider [phone] Encounter Details Date Type Department Care Team (Late st Contact Info) Description 02/24/2020 [facility] [address] 4th [place] [address] Gene Lopez MD [address] [place] [address] Social History Tobacco Use Types Packs/Day Years Used Date Smoking Tobacco: Former Cigarettes Q uit: 04/27/2019 Smokeless Tobacco: Never Alcohol Use Standard Drinks/Week Comments Yes 0 (1 standard drink = 0.6 oz pur e alcohol) PHQ-2 Answer Date Recorded PHQ-2 Score 3 05/01/2019 Sex and Gender Information Value Date Recorded Sex Assigned at Not on file Legal Sex Male 10:57 AM CDT Gender Identity Not on file Sexual Orientation Not on file documented as of this encounter Plan of Treatment Not on file documented as of this encounter Visit Diagnoses Not on filedocumented in this encounter Additional Health Concerns Assessment Noted Time PHQ-9 Depression Total Score: 6 05/01/19 20 9:25 AM LOADING INSPECTOR documented as of this encounter Care Teams Octave Board Assembler Relationship Specialty Start Date End Date Yuniel Mcmillan MD [facility] [address] [place] [address] PCP - General 01/14/19 08/29/24 Festus Larsen DO [address] [place] [address] PCP - General 08/30/24 Gene Lopez MD [address] [facility] 200 [place] [address] Assigned Musculoskeletal Provider 02/07/20 07/18/20 documented as of this encounter
--- OUTSIDE RECORDS SUMMARY | 2025-01-09 18:58 | XMS_ITS | Encounter Summary ---
Author Organization [facility] Address [address] [place] [address] Care Team Providers Care Whizzer Operator Name Role Phone Yuniel Mcmillan MD Primary Care Provider [phone] Festus Larsen DO Primary Care Provider [phone] Encounter Details Date Type Department Care Team (Late st Contact Info) Description 08/04/2022 [facility] Medical Advice [address] [place] [address] Nicholas [facility] Social History Tobacco Use Types Packs/Day Years [...] Total Score: 6 05/01/19 20 9:25 AM CONTENT CHECKER documented as of this encounter Care Teams Whizzer Operator Relationship Specialty Start Date End Date Yuniel Mcmillan MD [facility] [address] [place] [address] PCP - General 01/14/19 08/29/24 [place] [address] [place] [address] PCP - General 08/30/24 documented as of this encounter
--- OUTSIDE RECORDS SUMMARY | 2025-01-09 18:58 | XMS_ITS | Encounter Summary ---
Author Organization [facility] Address [address] [place] [address] Care Team Providers Care Freight Car Inspector Name Role Phone Elsewhere, Pcp Primary Care Provider Unavailabl e Encounter Details Date Type Department Care Team (Late st Contact Info) Description 11/28/2024 Orders Only Department of Radiation Oncology in [place], [place] [address] [place] [phone] Phillip Estrada M.D. [address] [place] [address] Social History Tobacco Use Types Packs/Day Years [...] PM CDT Legal Sex Male 9:57 AM CELL TUBER HAND Gender Identity Male 04/02/2020 9:30 AM CELL TUBER HAND Sexual Orientation Straight 04/02/2020 9: 30 AM CELL TUBER HAND documented as of this encounter Plan of Treatment Upcoming Encounters Date Type Department Care Team (Late st Contact Info) Description 03/05/2025 3:00 PM CELL TUBER HAND Appointment Department of Radiation Oncology in [place], [place] [address] [place] [phone] Phillip Estrada M.D. [address] [place] [phone] documented as of this encounter Visit Diagnoses Not on filedocumented in this encounter Care Teams Freight Car Inspector Relationship Specialty Start Date End Date Elsewhere, Pcp PCP - General Internal Medicine 10/28/21 documented as of this encounter
--- OUTSIDE RECORDS SUMMARY | 2025-01-09 18:58 | XMS_ITS | Encounter Summary ---
Author Organization [facility] [place] Address [address] [place] [address]. [place] [address] Care Team Providers Care Contract Forester Name Role Phone Yuniel Mcmillan MD Primary Care Provider [phone]- [phone] Gene Lopez MD Unavailable [phone] Festus Larsen DO Primary Care Provider Encounter Details Date Type Department Care Team (Late st Contact Info) Description 06/25/[address] [facility] Pre[facility] Assessment Center [address] 5th [place] [address] Agustina Gong, BASIN TENDER [facility] [address] [facility] [address] [place] [address] Social History Tobacco Use Types Packs/Day Years [...] Total Score: 6 05/01/19 20 9:25 AM CINDER PITMAN documented as of this encounter Care Teams Contract Forester Relationship Specialty Start Date End Date Yuniel Mcmillan MD [facility] [address] [place] [address] PCP - General 01/14/19 08/29/24 Festus Larsen DO [address] [place] [address] PCP - General 08/30/24 Gene Lopez MD [address] [facility] 200 [place] [address] Assigned Musculoskeletal Provider 02/07/20 07/18/20 documented as of this encounter
--- OUTSIDE RECORDS SUMMARY | 2025-01-09 18:58 | XMS_ITS | Encounter Summary ---
Author Organization [facility] Address [address] [place] [address]. [place] [address] Care Team Providers Care Back End Developer Name Role Phone Yuniel Mcmillan MD Primary Care Provider [phone] Gene Lopez MD Unavailable [phone] Festus Larsen DO Primary Care Provider [phone] Encounter Details Date Type Department Care Team (Late st Contact Info) Description 12/09/2019 [facility] Preoperative Assessment Center [address] [facility] [address] 5th [place] [address] Agustina Gong, ECHO VASCULAR TECH [facility] [address] [facility] [address] [place] [address] Social History Tobacco Use Types [...] Total Score: 6 05/01/19 20 9:25 AM CLIENT REPORTING ASSOCIATE documented as of this encounter Care Teams Back End Developer Relationship Specialty Start Date End Date Yuniel Mcmillan MD [facility] [address] [place] [address] PCP - General 01/14/19 08/29/24 Festus Larsen DO [address] [place] [address] PCP - General 08/30/24 Gene Lopez MD [address] [facility] 200 [place] [address] Assigned Musculoskeletal Provider 02/07/20 07/18/20 documented as of this encounter
--- OUTSIDE RECORDS SUMMARY | 2025-01-09 18:58 | XMS_ITS | Encounter Summary ---
Author Organization [place] Address [address] [place] [address]. [place] [address] Care Team Providers Care Industrial Hygiene Technician Name Role Phone Yuniel Mcmillan MD Primary Care Provider [phone] Gene Lopez MD Unavailable [phone] Festus Larsen DO Primary Care Provider [phone] Encounter Details Date Type Department Care Team (Late st Contact Info) Description 06/25/2019 [facility] Medical Advice [facility] [address] [facility] [address] [place] [address] Gene Lopez MD [address] [place] [address] [address] [place] [address] Social History Tobacco Use Types Packs/Day [...] Total Score: 6 05/01/19 20 9:25 AM MEDIA REPORTER documented as of this encounter Care Teams Industrial Hygiene Technician Relationship Specialty Start Date End Date Yuniel Mcmillan MD [facility] [address] [place] [address] PCP - General 01/14/19 08/29/24 Festus Larsen DO [address] [place] [address] PCP - General 08/30/24 Gene Lopez MD [address] [place] [address] [address] [place] [address] Assigned Musculoskeletal Provider 02/07/20 07/18/20 documented as of this encounter
--- OUTSIDE RECORDS SUMMARY | 2025-01-09 18:58 | XMS_ITS | Encounter Summary ---
Author Organization [facility] Address [address] [place] [address]. [place] [address] Care Team Providers Care American Sign Language Interpreter Name Role Phone Yuniel Mcmillan MD Primary Care Provider [phone] Gene Lopez MD Unavailable [phone] Festus Larsen DO Primary Care Provider [phone] Encounter Details Date Type Department Care Team (Late st Contact Info) Description 03/02/2020 [facility] [address] [facility] [address] 5th [place] [address] Agustina Gong, SCREEN PRINTING STENCIL PREPARER [facility] [address] [facility] 450 [place] [address] Social History Tobacco Use Types [...] Total Score: 6 05/01/19 20 9:25 AM HAND TUFTER documented as of this encounter Care Teams American Sign Language Interpreter Relationship Specialty Start Date End Date Yuniel Mcmillan MD [facility] [address] [place] [address] PCP - General 01/14/19 08/29/24 Festus Larsen DO [address] [place] [address] PCP - General 08/30/24 Gene Lopez MD 24[address] [facility] 200 [place] [address] Assigned Musculoskeletal Provider 02/07/20 07/18/20 documented as of this encounter
--- OUTSIDE RECORDS SUMMARY | 2025-01-09 18:58 | XMS_ITS | Encounter Summary ---
Author Organization [facility] Address [facility] [place] [address] Care Team Providers Care Geomatics Professor Name Role Phone Yuniel Mcmillan MD Primary Care Provider [phone] Gene Lopez MD Unavailable Festus Larsen DO Primary Care Provider [phone] Encounter Details Date Type Department Care Team (Late st Contact Info) Description 02/20/2019 [facility] [address] [facility] 4th [place] [address] Gene Lopez MD [address] [place] [address] 200 [place] [address] Social History Tobacco Use Types Packs/Day Years Used Date Smoking Tobacco: Never Assessed PHQ-2 Answer Date Recorded PHQ-2 Score 3 01/14/2019 Sex and Gender Information Value Date Recorded Sex Assigned at Not on file Legal Sex Male 10:57 AM CDT Gender Identity Not on file Sexual Orientation Not on file documented as of this encounter Plan of Treatment Not on file documented as of this encounter Visit Diagnoses Not on filedocumented in this encounter Additional Health Concerns Assessment Noted Time PHQ-9 Depression Total Score: 4 01/16/20 19 7:04 AM CDT documented as of this encounter Care Teams Geomatics Professor Relationship Specialty Start Date End Date Yuniel Mcmillan MD [facility] [address] [place] [address] PCP - General 01/14/19 08/29/24 Festus Larsen DO [address] [place] [address] PCP - General 08/30/24 Gene Lopez MD 2450 [facility] 200 [place] [address] Assigned Musculoskeletal Provider 02/07/20 07/18/20 documented as of this encounter
--- OUTSIDE RECORDS SUMMARY | 2025-01-09 18:58 | XMS_ITS | Encounter Summary ---
Author Organization [facility] Address [address] [place] [address]. [place] [address] Care Team Providers Care Physician'S Assistant Name Role Phone Yuniel Mcmillan MD Primary Care Provider [phone] Gene Lopez MD Unavailable Festus Larsen DO Primary Care Provider [phone] Encounter Details Date Type Department Care Team (Late st Contact Info) Description 09/12/2019 [facility] Medical Advice [facility] [address] [facility] [address] [place] [address] Gene Lopez MD [address] [place] [address] [address] [place] [address] Social History Tobacco Use Types [...] Total Score: 6 05/01/19 20 9:25 AM SALES REVIEW CLERK documented as of this encounter Care Teams Physician'S Assistant Relationship Specialty Start Date End Date Yuniel Mcmillan MD [facility] [address] [place] [address] PCP - General 01/14/19 08/29/24 Festus Larsen DO [address] [place] [address] PCP - General 08/30/24 Gene Lopez MD [address] [place] [address] [address] [place] [address] Assigned Musculoskeletal Provider 02/07/20 07/18/20 documented as of this encounter
--- OUTSIDE RECORDS SUMMARY | 2025-01-09 18:58 | XMS_ITS | Clinical Summary ---
Author Organization [facility] [place] Address [address] [place] [address] Care Team Providers Care Public Information Coordinator Name Role Phone Festus Larsen Primary Care Provider [phone] Allergies Active Allergy Reactions Criticality Noted Date Comments Ibuprofen Unknown High 01/17/2014 States he was told years ago not to take it due to damage to kidney Ketorolac High 05/01/2019 Pt is not allowed to take due to kidney damage. Medications amiodarone (PACERONE/CODARONE ) 200 MG tablet Take 200 mg by mouth every morning 9 Active atorvastatin (LIPITOR) 20 MG tablet Take 20 mg by mouth every morning 8 Active cloNIDine (CATAPRES) 0.2 MG tablet Take 0.2 mg by mouth 2 times daily 9 Active metoprolol tartrate (LOPRESSOR) 100 MG tablet Take 100 mg by mouth 2 times daily 8 Active NIFEdipine ER OSMOTIC (NIFEDICAL XL) 30 MG 24 hr tablet TK 1 T PO IN THE MORNING THEN TK 2 TS PO HS 8 Active sildenafil (VIAGRA) 100 MG tablet Take 30min to 4 hours before sexual activity. Max 100mg/24hr. 8 Active warfarin ANTICOAGULANT (COUMADIN) 2 MG tablet Take 4mg on Mon, Wed, Fri, 3mg the rest of the week. 9 Active HYDROcodone-acetam inophen (NORCO) 5-325 MG tabletIndications: Pain Take 1 tablet by mouth 3 times daily. Active Active Problems Problem Noted Date Diagnosed Date Hyperparathyroidism due to renal insufficiency 0 04/22/2019 Hypertensive renal disease 04/22/2019 Bilateral primary osteoarthritis of knee 10/08/2 019 Overview (01/22/2019): Added automatically from request for surgery [id number] Vitamin D deficiency 06/13/2017 Adenomatous colon polyp 12/24/2014 Overview (04/29/2019): Colonoscopy 12/2014 polyp repeat in 5 years Pain medication agreement 10/28/2014 Anticoagulation monitoring, INR range 2-3 2014 Pure hypercholesterolemia 03/04/2014 Chronic renal insufficiency, stage III (moderate ) 02/27/2014 Tobacco abuse 02/27/2014 Paroxysmal atrial fibrillation 11/22/2012 Essential hypertension 08/17/2012 Primary osteoarthritis of left knee 08/17/2012 Overview (04/29/2019): S/P Surgery of left knee 2009. November 2017: Dr. Bobo gave hyaluronic acid injection? April 2018: Dr. Lechuga did Cortisone injection to bilateral knees. Family History Medical History Relation Comments Cancer Mother Cancer Other sibling Relation Status Comments Mother Other Social History Tobacco Use Types Packs/Day Years Used Date Smoking Tobacco: Every Day Cigarettes Last attempted to quit: 04/27/2019 Smokeless Tobacco: Never Tobacco Cessation:Ready to Q uit: Not Asked; Counseling Given: Not Answered Alcohol Use Standard Drinks/Week Comments Yes 0 (1 standard drink = 0.6 oz pur e alcohol) occasionally PHQ-2 Answer Date Recorded PHQ-2 Score 3 05/01/2019 Adolescent Education Answer Date Record ed Getting School Help Needed Not on file 01/06 Interpersonal Safety Answer Date Record ed Do you feel physically and e motionally safe where you currently live? Yes 09/11/2024 Within the past 12 months, h ave you been hit, slapped, kicked or otherwise physically hurt by someone? No 09/11/2024 Within the past 12 months, h ave you been humiliated or emotionally abused in other ways by your partner or ex-partner? No 09/11/2024 Sex and Gender Information Value Date Recorded Sex Assigned at Not on file Legal Sex Male 10:57 AM CDT Gender Identity Not on file Sexual Orientation Not on file Last Filed Vital Signs Vital Sign Reading Time Taken Comments Blood Pressure 144/79 09/11/2024 3:26 PM CDT Pulse 54 09/11/2024 3:26 PM CDT Temperature 36.6 C (97.9 F) 09/11/2024 3:26 PM CDT Respiratory Rate 16 09/11/2024 3:26 PM CDT Oxygen Saturation 100% 09/11/2024 3:26 PM CDT Inhaled Oxygen Concentration - - Weight 93.6 kg (206 lb 6.4 oz) 09/11/2024 11:10 AM CDT Height 182.9 cm (6') 09/11/2024 11:10 AM CDT Body Mass Index 27.99 09/11/2024 11:10 AM CDT Plan of Treatment Health Maintenance Due Date Last Done Comments ADVANCE CARE PLANNING 1952 ANNUAL REVIEW OF HM ORDERS [address]ONOGRAPHY 1952 DIABETES SCREENING 1952 FIT 1952 FLEX SIG 1952 LIPID 1952 MICROALBUMIN 1952 NICOTINE/TOBACCO CESSATION COUNSELING Q 1 YR 1952 sDNA (Cologuard) 1952 HEMOGLOBIN 1953 LUNG CANCER SCREENING 2002 MEDICARE ANNUAL WELLNESS VISIT 2017 FALL RISK ASSESSMENT 05/01/2020 05/01/2019 PHQ-2 (once per calendar year) 2024 05/01/2019, 05/01/2019, 01/14/2019, Additional history exists COVID-19 VACCINE ( season) 2024 03/25/2024, 01/31/2023, 01/11/2022, Additional history exists INFLUENZA VACCINE (#1) 2024 , 01/31/2023, 02/22/2022, Additional history exists RSV VACCINE (1 - 1-dose 75+ series) 10/31/2027 COLONOSCOPY 08/10/2030 08/10/2020 COLORECTAL CANCER SCREENING 08/10/2030 DTAP/TDAP/TD VACCINE (3 - Td or Tdap) 04/20/2033 04/20/2023, 07/06/2009, 07/06/2009 HEPATITIS C SCREENING Completed 04/18/2019 URINALYSIS Completed 05/01/2019 PNEUMOCOCCAL VACCINE 50+ YEARS Completed 09/26/2022, 03/26/2018, 03/31/2006 AORTIC ANEURYSM SCREENING (SYSTEM ASSIGNED) Completed 10/04/2022, 10/04/2022 ZOSTER VACCINE Completed 04/20/2023, 01/16, 03/09/2016 HPV VACCINE (No Doses Required) Completed MENINGITIS VACCINE Aged Out No longer eligible based on patient's age to complete this topic Procedures Procedure Name Priority Date/Time Associated Diagnosis Comments URINE MACROSCOPIC WITH REFLEX TO MICRO Routine 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 Glucose Urine Negative NEG^Negat gavin mg/dL 05/01/2019 12:44 PM [facility] Bilirubin Urine Negative NEG^Negat gavin 05/01/2019 12:44 PM [facility] Ketones Urine Negative NEG^Negat gavin mg/dL 05/01/2019 12:44 PM [facility] Specific [place] Urine 1.017 1.003 - 1.035 05/01/2019 12:44 PM [facility] Blood Urine Negative NEG^Negat gavin 05/01/2019 12:44 PM [facility] pH Urine 5.0 5.0 - 7.0 pH 05/01/2019 12:44 PM [facility] Protein Albumin Urine Negative NEG^Negat gavin mg/dL 05/01/2019 12:44 PM [facility] Urobilinogen mg/dL 0.0 0.0 - 2.0 mg/dL 05/01/2019 12:44 [address] DEL[address]ER [facility] Nitrite Urine Negative NEG^Negat gavin 05/01/2019 12:[address] Leukocyte Esterase Urine Negative NEG^Negat gavin 05/01/2019 12:[address] Source Midstream Urine 05/01/2019 12:26 [address] DEL[facility]ER 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
--- OUTSIDE RECORDS SUMMARY | 2025-01-09 18:58 | XMS_ITS | Encounter Summary ---
Author Organization [facility] Address [address] [place] [address]. 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
--- OUTSIDE RECORDS SUMMARY | 2025-01-09 18:58 | XMS_ITS | Clinical Summary ---
Author Organization [facility] Address [address] [place] [id number] Care Team Providers Care Retrimmer Name Role Phone Elsewhere, Pcp Primary Care Provider Unavailabl e Source Comments Patient records contain information from all sites at [facility]. For routine questions regarding patient records, call [phone] during business hours, M-F 8:00 AM - 5:00 PM Central Time. Record requests for emergency care only can be directed to [phone] at any time.[facility] Allergies Active Allergy Reactions Criticality Noted Date Comments Ibuprofen Other (see comments) High 01/17/2014 States he was told years ago not to take it due to damage to kidney Ketorolac Other (see comments) High 05/01/2019 Pt is not allowed to take due to kidney damage. Medications * This document contains information received from the source organization and may not represent a complete record from that organization. warfarin (COUMADIN) 2 mg tablet Take 3 mg by mouth 5 (five) times a week. 4 mg on Monday and , 3 mg all other days 9 Active metoprolol tartrate (LOPRESSOR) 100 mg tablet Take 100 mg by mouth 2 (two) times a day. 0630 am and 3pm 7 Active cloNIDine (CATAPRES) 0.2 mg tablet Take 0.2 mg by mouth 4 (four) times a day. 630am, 3pm, bedtime, and 3am. 9 Active atorvastatin (LIPITOR) 20 mg tablet Take 20 mg by mouth at bedtime. 8 Active amiodarone (PACERONE) 200 mg tablet Take 200 mg by mouth every morning. 9 Active NIFEdipine (ADALAT CC) 30 mg ER tablet Take 30-60 mg by mouth as directed. One 30 mg tablet in the AM at 630 am and two tablets (60 mg) in the PM at bedtime Active acetaminophen (TYLENOL) 500 mg tablet Take 2 tablets (1,000 mg total) by mouth every 6 (six) hours. 2 Active HYDROcodone-rohit taminophen ([place]) 5-325 mg per tablet Take 1 tablet by mouth 3 (three) times a day. 5 Active amiodarone (Pacerone) 200 mg tablet Take 100 mg by mouth. 4 Active atorvastatin (Lipitor) 20 mg tablet Take 20 mg by mouth daily. 5 Active metoprolol tartrate (Lopressor) 100 mg tablet Take 100 mg by mouth 2 (two) times a day. 5 Active NIFEdipine XL (Procardia XL) 30 mg 24 hr tablet Take by mouth 1 tab in am, 2 tabs in pm 4 Active LORazepam (Ativan) 1 mg tabletIndicatio ns:Malignant Neoplasm Of Larynx (HCC) Take 1 tablet (1 mg total) by mouth as directed. Take 1 tablet 1 hour prior to radiation treatment. Take additional tablet 30 minutes later if desired affect not obtained. 28 tablet 5 Active diphenhydramine -lidocaine 2 %-antacid (mw) Take 5-10 mL by mouth 4 (four) times a day before meals and bedtime. Swallow solution. Do not eat or drink for 15-30 minutes after use. 480 mL 2 5 Active naloxone (Narcan) 4 mg/actuation nasal spray Administer 1 spray (4 mg total) into nostril(s) every 2 (two) minutes as needed (overdose). 1 each 5 11/01/19 26 Active oxyCODONE (Roxicodone) 10 mg IR tabletIndicatio ns:Prolonged Acute Pain/Traumatic Injury Take 1 tablet (10 mg total) by mouth every 8 (eight) hours as needed for pain Indication: Prolonged Acute Pain/Traumatic Injury. 10 tablet 5 Active Active Problems Problem Noted Date Diagnosed Date Malignant Neoplasm Of Larynx 09/13/2024 Cancer Staging:Clinical:Stage I(cT1b, cN0, cM0) - Unsigned Primary Osteoarthritis Knee Right 12/29/2020 Overview (03/24/2021): Added automatically from request for surgery [id number] Arthritis Knee Left 04/03/2020 Overview (04/03/2020): Added automatically from request for surgery [id number] Pure Hypercholesterolemia 03/04/2014 Chronic Kidney Disease (CKD) , Stage 3b Glomerular Filtration Rate (GFR) 30 To 44 02/27/2014 Atrial Fibrillation Paroxysmal 11/22/2012 Renal Disease Hypertension NOS Encounters * This document contains information received from the source organization and may not represent a complete record from that organization. Date Type Department Care Team Description 12/30/2024 3:08 PM CDT - 01/01/2025 1:17 PM CDT Hospital Encounter Department of Radiation Oncology in [address] [address] Phillip Estrada M.D. Malignant Neoplasm Of Larynx (HCC) (Primary Dx) 11/28/2024 Orders Only Department of Radiation Oncology in [address] [address] Phillip Estrada M.D. 11/27/2024 10:00 AM CDT - 11/27/2024 2:00 PM CDT Hospital Encounter Department of Radiation Oncology in [address] [address] Phillip Estrada M.D. Retterath, Chelsey A RNevaN. Malignant Neoplasm Of Larynx (HCC) (Primary Dx) 11/20/2024 9:09 AM CDT - 11/20/2024 11:59 PM CDT Hospital Encounter Department of Radiation Oncology in [address] [address] Phillip Estrada M.D. Discharge Disposition: Home or Self Care 11/20/2024 Documentation Department of Radiation Oncology in [address] [address] Phillip Estrada M.D. 11/19/2024 9:09 AM CDT - 11/19/2024 1:32 PM CDT Hospital Encounter Department of Radiation Oncology in [address] [address] Phillip Estrada M.D. Malignant Neoplasm Of Larynx (HCC) 11/19/2024 9:08 AM CDT Hospital Encounter Department of Radiation Oncology in [address] [address] Phillip Estrada M.D. Discharge Disposition: Home or Self Care 11/18/2024 9:11 AM CDT - 11/18/2024 11:59 PM CDT Hospital Encounter Department of Radiation Oncology in [address] [address] Phillip Estrada M.D. Discharge Disposition: Home or Self Care 11/17/2024 Refill Department of Radiation Oncology in [address] [address] Linnea Brown APRN, C.N.P., D.N.P. Med Refill 11/15/2024 9:10 AM CDT - 11/15/2024 10:11 AM CDT Hospital Encounter Department of Radiation Oncology in [address] [address] Phillip Estrada M.D. Moorhouse, Alexis E, RNevaN. Malignant Neoplasm Of Larynx (HCC) (Primary Dx) 11/15/2024 9:10 AM CDT - 11/15/2024 11:59 PM CDT Hospital Encounter Department of Radiation Oncology in [address] [address] Phillip Estrada M.D. Discharge Disposition: Home or Self Care 11/14/2024 9:10 AM CDT - 11/14/2024 10:20 AM CDT Hospital Encounter Department of Radiation Oncology in [address] [address] Phillip Estrada M.D. von Ruden, Kristi A, JHOANAN, LD Malignant Neoplasm Of Larynx (HCC) (Primary Dx) 11/14/2024 9:10 AM CDT - 11/14/2024 11:59 PM CDT Hospital Encounter Department of Radiation Oncology in [address] [address] Phillip Estrada M.D. Discharge Disposition: Home or Self Care 11/13/2024 9:12 AM CDT - 12/08/2024 4:38 PM CDT Hospital Encounter Department of Radiation Oncology in [address] [address] Cm William M.D. Malignant Neoplasm Of Larynx (HCC) 11/13/2024 9:12 AM CDT - 11/13/2024 11:59 PM CDT Hospital Encounter Department of Radiation Oncology in [address] [address] Phillip Estrada M.D. Discharge Disposition: Home or Self Care 11/12/2024 9:10 AM CDT - 11/12/2024 11:59 PM CDT Hospital Encounter Department of Radiation Oncology in [address] [address] Phillip Estrada M.D. Discharge Disposition: Home or Self Care 11/11/2024 9:13 AM CDT - 11/11/2024 11:59 PM CDT Hospital Encounter Department of Radiation Oncology in [address] [address] Phillip Estrada M.D. Discharge Disposition: Home or Self Care 11/08/2024 9:13 AM CDT - 11/08/2024 11:59 PM CDT Hospital Encounter Department of Radiation Oncology in [address] [address] Phillip Estrada M.D. Discharge Disposition: Home or Self Care 11/07/2024 9:15 AM CDT - 11/07/2024 11:39 AM CDT Hospital Encounter Department of Radiation Oncology in [address] [address] Phillip Estrada M.D. Malignant Neoplasm Of Larynx (HCC) 11/07/2024 9:14 AM CDT Hospital Encounter Department of Radiation Oncology in [address] [address] Phillip Estrada M.D. Discharge Disposition: Home or Self Care 11/06/2024 9:14 AM CDT - 11/06/2024 11:59 PM CDT Hospital Encounter Department of Radiation Oncology in [address] [address] Phillip Estrada M.D. Discharge Disposition: Home or Self Care 11/05/2024 9:14 AM CDT - 11/05/2024 11:59 PM CDT Hospital Encounter Department of Radiation Oncology in [address] [address] Phillip Estrada M.D. Discharge Disposition: Home or Self Care 11/04/2024 9:15 AM CDT - 11/04/2024 11:59 PM CDT Hospital Encounter Department of Radiation Oncology in [address] [address] Phillip Estrada M.D. Discharge Disposition: Home or Self Care 11/01/2024 9:15 AM CDT - 11/01/2024 11:59 PM CDT Hospital Encounter Department of Radiation Oncology in [address] [address] Phillip Estrada M.D. Discharge Disposition: Home or Self Care 10/31/2024 9:37 AM CDT - 10/31/2024 10:29 AM CDT Hospital Encounter Department of Radiation Oncology in [address] [address] Phillip Estrada M.D. von Ruden, Kristi A, ALEXANDRE, LD Malignant Neoplasm Of Larynx (HCC) 10/31/2024 9:16 AM CDT - 10/31/2024 9:36 AM CDT Hospital Encounter Department of Radiation Oncology in [address] [address] Phillip Estrada M.D. Malignant Neoplasm Of Larynx (HCC) 10/31/2024 9:16 AM CDT - 10/31/2024 9:36 AM CDT Hospital Encounter Department of Radiation Oncology in [address] [address] Phillip Estrada M.D. Discharge Disposition: Home or Self Care 2024 9:16 AM CDT - 2024 11:59 PM CDT Hospital Encounter Department of Radiation Oncology in [address] [address] Phillip Estrada M.D. Discharge Disposition: Home or Self Care 10/29/2024 9:13 AM CDT - 10/29/2024 11:59 PM CDT Hospital Encounter Department of Radiation Oncology in [address] [address] Phillip Estrada M.D. Discharge Disposition: Home or Self Care 10/28/2024 9:14 AM CDT - 10/28/2024 11:59 PM CDT Hospital Encounter Department of Radiation Oncology in [address] [address] Phillip Estrada M.D. Discharge Disposition: Home or Self Care 10/25/2024 9:14 AM CDT - 10/25/2024 11:59 PM CDT Hospital Encounter Department of Radiation Oncology in [address] [address] Phillip Estrada M.D. Discharge Disposition: Home or Self Care 10/24/2024 9:17 AM CDT - 10/28/2024 1:42 PM CDT Hospital Encounter Department of Radiation Oncology in [address] [address] Phillip Estrada M.D. Malignant Neoplasm Of Larynx (HCC) 10/24/2024 9:16 AM CDT Hospital Encounter Department of Radiation Oncology in [address] [address] Phillip Estrada M.D. Discharge Disposition: Home or Self Care 10/23/2024 1:00 PM CDT Virtual Visit Department of Oncology in [place] [address] [place] [address] Phillip Estrada M.D. Wacholz, Abigail M, M.S.W., L.I.C.S.W. Malignant Neoplasm Of Larynx (HCC) 10/23/2024 9:12 AM CDT - 10/23/2024 11:59 PM CDT Hospital Encounter Department of Radiation Oncology in [address] [address] Phillip Estrada M.D. Discharge Disposition: Home or Self Care 10/22/2024 9:12 AM CDT - 10/22/2024 11:59 PM CDT Hospital Encounter Department of Radiation Oncology in [address] [address] Phillip Estrada M.D. Discharge Disposition: Home or Self Care 10/21/2024 9:12 AM CDT - 10/21/2024 11:59 PM CDT Hospital Encounter Department of Radiation Oncology in [address] [address] Phillip Estrada M.D. Discharge Disposition: Home or Self Care 10/17/2024 9:11 AM CDT - 10/17/2024 10:32 AM CDT Hospital Encounter Department of Radiation Oncology in [address] [address] Phillip Estrada M.D. Eby, Courtney C, RDN Malignant Neoplasm Of Larynx (HCC) 10/17/2024 9:11 AM CDT - 10/21/2024 9:11 AM CDT Hospital Encounter Department of Radiation Oncology in [address] [address] Phillip Estrada M.D. Malignant Neoplasm Of Larynx (HCC) 10/17/2024 9:10 AM CDT Hospital Encounter Department of Radiation Oncology in [address] [address] Phillip Estrada M.D. Discharge Disposition: Home or Self Care 10/16/2024 2:55 PM CDT - 10/16/2024 11:59 PM CDT Hospital Encounter Department of Radiation Oncology in [address] [address] Phillip Estrada M.D. Discharge Disposition: Home or Self Care 10/16/2024 8:39 AM CDT - 10/16/2024 2:54 PM CDT Hospital Encounter Department of Radiation Oncology in [address] [address] Phillip Estrada M.D. Moorhouse, Alexis E, RNevaNNeva Malignant Neoplasm Of Larynx (HCC) (Primary Dx) 10/16/2024 8:37 AM CDT - 10/16/2024 8:38 AM CDT Hospital Encounter Department of Radiation Oncology in [address] [address] Phillip Estrada M.D. Discharge Disposition: Home or Self Care 10/15/2024 9:10 AM CDT - 10/15/2024 11:59 PM CDT Hospital Encounter Department of Radiation Oncology in [address] [address] Phillip Estrada M.D. Discharge Disposition: Home or Self Care 10/14/2024 10:22 AM CDT - 10/14/2024 11:59 PM CDT Hospital Encounter Department of Radiation Oncology in [place], [place] [address] [place] [address] Phillip Estrada M.D. Discharge Disposition: Home or Self Care from Last 3 Months Immunizations Immunization Administration Dates Next Due HZV (ZOSTAVAX) 03/09/2016 Influenza TIV (IM) 04/18/2019,03/26/2018 Influenza, Quadrivalent, Adjuvanted, Preservativ e Free 04/23/2020 Influenza, Seasonal, Injectable 12/28/2011 Influenza, Unspecified 01/15/2010 PCV13 03/26/2018 PPSV23 03/31/2006 Td (Adult), adsorbed 07/06/2009 Tdap 07/06/2009 influenza vaccine quad (FLUZ ONE/FLUARIX) (6 months and older)(PF) 03/09/2016 Family History Medical History Relation Name Comments Prostate cancer Brother malika aldana Stroke Mother lisa Aldana Relation Name Status Comments Brother malika aldana Mother lisa Aldana Social History Tobacco Use Types Packs/Day Years [...] place to sleep or slept in a alf (including now)? No 04/25/2022 Education Answer Date Recorded What is the highest level of school you have completed or the highest degree you have received? Associate degree: occupational, technical, or vocational program 04/25/2022 Sex and Gender Information Value Date Recorded Sex Assigned at Male 12/24/2020 7:50 PM CDT Legal Sex Male 9:57 AM FIREWALL ENGINEER Gender Identity Male 04/02/2020 9:30 AM FIREWALL ENGINEER Sexual Orientation Straight 04/02/2020 9: 30 AM FIREWALL ENGINEER Last Filed Vital Signs Vital Sign Reading Time Taken Comments Blood Pressure 116/78 12/30/2024 3:28 PM CDT Pulse 77 12/30/2024 3:28 PM CDT Temperature 36.2 C (97.2 F) 12/30/2024 3:28 PM CDT Respiratory Rate 16 11/05/2021 10:46 AM CDT Oxygen Saturation 99% 11/05/2021 10:46 AM CDT Inhaled Oxygen Concentration - - Weight 90.8 kg (200 lb 2.8 oz) 12/30/2024 3:28 P M CDT Height 181 cm (5' 11.26) 10/17/2024 9:23 AM CDT Body Mass Index 27.72 10/17/2024 9:23 AM CDT Plan of Treatment Upcoming Encounters Date Type Department Care Team (Late st Contact Info) Description 03/05/2025 3:00 PM FIREWALL ENGINEER Appointment Department of Radiation Oncology in [place], [place] [address] [place] [phone] Phillip Estrada M.D. [address] [place] [phone] Health Maintenance Due Date Last Done Comments Abdominal Aortic Aneurysm (AAA) Screen 1952 CT Colonography 1952 Cologuard 1950 Hepatitis C Screening 1950 Office Visit for Blood Pressure Check / Re-check 1952 Tobacco Cessation counseling 1952 RSV vaccine - (32-36 weeks) or 60+ years (1 - Risk 60-74 years 1-dose series) 2012 Depression Screening (Annual PHQ-2) 04/17/2024 Fall Risk Screen (Annual) 04/17/2024 COVID-19 Vaccine (2024- season) 2024 01/31/2023, 01/11/2022, 02/11/2021, Additional history exists Influenza Vaccine (#1) 2024 , 02/22/2022, 02/11/2021, Additional history exists Colonoscopy 08/14/2025 08/14/2020 (Perf ormed elsewhere), 08/10/2020 Colorectal Cancer Surveillance 08/14/2025 Lung Cancer Screening 09/23/2025 09/23/2024 Fasting Glucose for Diabetes Screening 12/24/2026 12/25/2023, 06/06/2023, 11/17/2022, Additional history exists Lipid (Cholesterol) Screening 09/17/2028 09/18/2023, 04/18/2019, 03/26/2018 DTaP,Tdap,and Td Vaccines (4 - Td or Tdap) 04/20/2033 04/20/2023, 07/06/2009, 07/06/2009 Pneumococcal vaccine (50+ years) Completed 09/26/2022, 03/26/2018, 03/31/2006 Zoster Vaccines Completed 04/20/2023, 01/16, 03/09/2016 HPV Vaccines Aged Out No longer eligi ble based on patient's age to complete this topic IPV Vaccines Aged Out No longer eligi ble based on patient's age to complete this topic Medical Devices Implanted Type Area Sizing Machine Operator Device Identifier Shelf Expiration Date Model / Serial / Lot Cmnt Bn Hi Visc Pmma 40 - [id number] Implanted:Qty : 1 on 09/22/2020 by Phillip Malhotra M.D. at [facility] Bone Cement Left: Knee Lincoln [id number]--[id number] / / Cmnt Bn Hi Visc Pmma 40 - [id number] Implanted:Qty : 1 on 09/22/2020 by Phillip Malhotra M.D. at [facility] Bone Cement Left: Knee Lincoln [id number]--[id number] / / Cmnt Bn Smp 20gm - [id number] Implanted:Qty : 1 on 11/04/2021 at [facility] Bone Cement Right: Knee Lincoln [id number]--[id number] / / Pin Fix Mk Ss 4x140 - [id number] Implanted:Qty : 1 on 11/04/2021 at [facility] Hardware e.g. pins/screws /rods Right: Knee Dave [id number] / / [id number] Pin Fix 3.2x110 - [id number] Implanted:Qty : 1 on 11/04/2021 at [facility] Hardware e.g. pins/screws /rods Right: Knee Lincoln [id number] / / Bsplt Tib Att Fb Sz7 - [id number] Implanted:Qty : 1 on 09/22/2020 by Phillip Malhotra M.D. at [facility] Knee Implant Left: Knee Depuy Synthes 07/15/2030 [id number] / / [id number] Kn Fem Att Lt Cmnt Ps Sz-7 - [id number] Implanted:Qty : 1 on 09/22/2020 by Phillip Malhotra M.D. at [facility] Knee Implant Left: Knee Depuy Synthes 06/14/2030 [id number] / / [id number] Pat Att Mdlzd 41 - [id number] Implanted:Qty : 1 on 09/22/2020 by Phillip Malhotra M.D. at [facility] Knee Implant Left: Knee Depuy Synthes 06/14/2025 [id number] / / [id number] Ins Tib Att Ps 7x8 - [id number] Implanted:Qty : 1 on 09/22/2020 by Phillip Malhotra M.D. at [facility] Knee Implant Left: Knee Depuy Synthes 07/15/2025 [id number] / / [id number] Bsplt Tib Trt Sz5 - [id number] Implanted:Qty : 1 on 11/04/2021 at [facility] Knee Implant Right: Knee Lincoln 08/24/2026 5536-B-500 / / [id number] Ins Tib Trt Ps X3 Sz5 11 - [id number] Implanted:Qty : 1 on 11/04/2021 at [facility] Knee Implant Right: Knee Lincoln 07/25/2026 5532-G-[id number]- E / / [id number] Triathlon Posterior Stabilized Femoral Aakash #5 Rt Ps Cementless Implanted:Qty : 1 on 11/04/2021 at [facility] Knee Implant Right: Knee Dave [id number] 09/30/2025 5516-F-502 / / [id number] Pat Trt Asym 35x10 - [id number] Implanted:Qty : 1 on 11/04/2021 at [facility] Knee Implant Right: Knee Dave 09/09/2026 5552-L-350 / / [id number] Procedures Procedure Name Priority Date/Time Associated Diagnosis Comments ARIA COURSE COMPLETE TREATMENT INFORMATION Routine 11/20/2024 9:29 AM CDT ARIA DAILY TREATMENT INFORMATION Routine 11/20/2024 9:29 AM CDT ARIA DAILY TREATMENT INFORMATION Routine 11/19/2024 9:19 AM CDT ARIA DAILY TREATMENT INFORMATION Routine 11/18/2024 9:40 AM CDT ARIA DAILY TREATMENT INFORMATION Routine 11/15/2024 9:30 AM CDT ARIA DAILY TREATMENT INFORMATION Routine 11/14/2024 9:34 AM CDT ARIA DAILY TREATMENT INFORMATION Routine 11/13/2024 9:22 AM CDT ARIA DAILY TREATMENT INFORMATION Routine 11/12/2024 9:27 AM CDT ARIA DAILY TREATMENT INFORMATION Routine 11/11/2024 9:33 AM CDT ARIA DAILY TREATMENT INFORMATION Routine 11/08/2024 9:35 AM CDT ARIA DAILY TREATMENT INFORMATION Routine 11/07/2024 9:24 AM CDT ARIA DAILY TREATMENT INFORMATION Routine 11/06/2024 9:37 AM CDT ARIA DAILY TREATMENT INFORMATION Routine 11/05/2024 9:27 AM CDT ARIA DAILY TREATMENT INFORMATION Routine 11/04/2024 9:34 AM CDT ARIA DAILY TREATMENT INFORMATION Routine 11/01/2024 9:35 AM CDT ARIA DAILY TREATMENT INFORMATION Routine 10/31/2024 9:26 AM CDT ARIA DAILY TREATMENT INFORMATION Routine 2024 9:40 AM CDT ARIA DAILY TREATMENT INFORMATION Routine 10/29/2024 9:39 AM CDT ARIA DAILY TREATMENT INFORMATION Routine 10/28/2024 9:28 AM CDT ARIA DAILY TREATMENT INFORMATION Routine 10/25/2024 9:26 AM CDT ARIA DAILY TREATMENT INFORMATION Routine 10/24/2024 9:27 AM CDT ARIA DAILY TREATMENT INFORMATION Routine 10/23/2024 9:24 AM CDT ARIA DAILY TREATMENT INFORMATION Routine 10/22/2024 9:26 AM CDT ARIA DAILY TREATMENT INFORMATION Routine 10/21/2024 9:27 AM CDT ARIA DAILY TREATMENT INFORMATION Routine 10/17/2024 9:34 AM CDT ARIA DAILY TREATMENT INFORMATION Routine 10/16/2024 3:20 PM CDT ARIA DAILY TREATMENT INFORMATION Routine 10/16/2024 9:01 AM CDT ARIA DAILY TREATMENT INFORMATION Routine 10/15/2024 9:32 AM CDT ARIA DAILY TREATMENT INFORMATION Routine 10/14/2024 10:48 AM CDT BASIC METABOLIC PANEL, S/P Routine 11/05/2021 5:01 AM CDT from Last 3 Months or Most Recently Relevant to Health Maintenance Results * Aria Course Complete Treatment Information (11/20/2024 9:29 AM CDT) [facility] Course ID [id number] VEGA ARIA Course Start Date 5 13:42 CDT VEGA ARIA Course End Date 5 13:42 CDT VEGA ARIA First Treatment Date 5 10:47 CDT VEGA ARIA Last Treatment Date 5 09:29 CDT VEGA ARIA Treatment Elapsed Days 37 VEGA ARIA Reference Point [id number] VEGA ARIA Dosage Given to Date cGy 6300 VEGA ARIA Plan ID [id number] VEGA ARIA Fractions Treated to Date 28 VEGA ARIA Planned Total Fractions 28 VEGA ARIA Prescribed Dose Per Fraction 225 VEGA ARIA Prescription Dose in cGy 6300 VEGA ARIA Plan Primary Reference Point [id number] VEGA ARIA 11/20/2024 9:29 AM CDT us Provider Not In System RADIATION ONCOLOGY ORDERA BLES Final Result Performing Organization Address City/[facility]/ZIP Co de Phone Number GARY LOZANO na * Aria Daily Treatment Information (11/20/2024 9:29 AM CDT) Only the most recent of28 resultswithin the time period is included. Course ID [id number] VEGA ARIA Course Start Date 5 13:42 CDT VEGA ARIA First Treatment Date 5 10:47 CDT VEGA ARIA Last Treatment Date 5 09:29 CDT VEGA ARIA Treatment Elapsed Days 37 VEGA ARIA Reference Point [id number] VEGA ARIA Dosage Given to Date cGy 6300 VEGA ARIA Session Dosage Given 225 VEGA ARIA Plan ID [id number] VEGA ARIA Fractions Treated to Date 28 VEGA ARIA Planned Total Fractions 28 VEGA ARIA Prescribed Dose Per Fraction 225 VEGA ARIA Prescription Dose in cGy 6300 VEGA ARIA Plan Primary Reference Point [id number] VEGA ARIA 11/20/2024 9:29 AM CDT us Provider Not In System RADIATION ONCOLOGY ORDERA BLES Final Result GARY LOZANO na * (ABNORMAL) Basic Metabolic Panel (11/05/2021 5:01 AM CDT) Potassium, S 4.3 3.6 - 5.2 mmol/L 11/05/2021 5:42 AM CDT DTL Sodium, S 142 135 - 145 mmol/L 11/05/2021 5:42 AM CDT DTL Chloride, S 105 98 - 107 mmol/L 11/05/2021 5:42 AM CDT DTL Bicarbonate, S 24 22 - 29 mmol/L 11/05/2021 5:42 AM CDT DTL Anion Gap 13 7 - 15 11/05/2021 5:42 AM CDT DTL BUN (Blood Urea Nitrogen), S 30(H) 8 - 24 mg/dL 11/05/2021 5:42 AM CDT DTL Creatinine 1.93(H) 0.74 - 1.35 mg/dL 11/05/2021 5:42 AM CDT DTL eGFR-Non Black/ 35(L) >=60 mL/min/BSA 11/05/2021 5:42 AM CDT DTL Comment: ----ADDITIONAL INFORMATION---- Estimated GFR calculated using the 2009 CKD_EPI creatinine equation. eGFR-Black/Afri can Ugandan 40(L) >=60 mL/min/BSA 11/05/2021 5:42 AM CDT DTL Comment: ----ADDITIONAL INFORMATION---- Estimated GFR calculated using the 2009 CKD_EPI creatinine equation. Calcium, Total, S 9.2 8.8 - 10.2 mg/dL 11/05/2021 5:42 AM CDT DTL Glucose, S 124 70 - 140 mg/dL 11/05/2021 5:42 AM CDT DTL Blood (Blood, Venous) 11/05/2021 5:01 AM CDT 11/05/2021 5:25 AM CDT Nasir Ames M.D. LAB BLOOD ADD-ON Final Res ult [facility] [address] [place] [address], [facility] [address] [place] [address] from Last 3 Months or Most Recently Relevant to Health Maintenance Insurance MEDICARE [facility] Advance Directives For more information, please contact: [phone] * Full Code (Latest Code Status on File) Date Activated Date Inactivated Comments 11/04/2021 12:40 PM 11/05/2021 1:18 PM Question Answer Comments Full Code: Discussed Care Teams Retrimmer Relationship Specialty Start Date End Date Elsewhere, Pcp PCP - General Internal Medicine 10/28/21
--- OUTSIDE RECORDS SUMMARY | 2025-01-09 19:00 | XMS_ITS | Clinical Summary ---
Author Organization [facility] Address [address] [place] [address] Care Team Providers Care Sales Operations Consultant Name Role Phone Festus Larsen DO Primary Care Provider [phone] Allergies Active Allergy Reactions Criticality Noted Date Comments Ibuprofen *Unknown 01/17/2014 States he was told years ago not to take it due to damage to kidney Ketorolac *Unknown High 05/01/2019 Pt is not allowed to take due to kidney damage. Medications acetaminophen (TYLENOL EXTRA STRGTH) 500 mg tablet Take 1,000 mg by mouth four times daily 6 hours apart. 2021 Active NIFEdipine (PROCARDIA XL) 30 mg extended-release tabletIndications:Esse ntial hypertension TAKE ONE TABLET BY MOUTH EVERY MORNING AND TAKE 2 TABLETS (60 MG TOTAL) AT BEDTIME 270 Tablet 3 2023 Active amiodarone (CORDARONE) 200 mg tabletIndications:Paro xysmal atrial fibrillation (HC) Take 0.5 Tablets (100 mg) by mouth once daily. 45 Tablet 3 2023 Active metoprolol tartrate 100 mg tabletIndications:Esse ntial hypertension TAKE ONE TABLET BY MOUTH TWICE DAILY 180 Tablet 3 2024 Active cloNIDine HCL 0.2 mg tabletIndications:Esse ntial hypertension TAKE 2 TABLETS (0.4 MG) BY MOUTH TWO TIMES DAILY 360 Tablet 3 2024 Active LORazepam 1 mg tabletIndications:Raven strophobia Take 1 Tablet (1 mg) by mouth one time for 1 dose. For MRI 1 Tablet 2024 Active warfarin 2 mg tabletIndications:Paro xysmal atrial fibrillation (HC),Anticoagulation monitoring, INR range 2-3 Take by mouth 2 mg (2 mg x 1) every Mon, Wed, Fri; 4 mg (2 mg x 2) all other days 143 Tablet 2024 Active HYDROcodone-acetaminop hen ([place]) (5-325 mg/tablet)Indications: Chronic knee pain after total replacement of right knee joint Take 1 Tablet by mouth 3 times daily if needed for Pain. As needed chronic pain. 90 Tablet 2024 Active atorvastatin (LIPITOR) 20 mg tabletIndications:Pure hypercholesterolemia TAKE ONE TABLET BY MOUTH EVERY DAY 90 Tablet 3 2024 Active atorvastatin 20 mg tabletIndications:Pure hypercholesterolemia TAKE ONE TABLET BY MOUTH EVERY DAY 90 Tablet 12/27 Discontinued HYDROcodone-acetaminop hen ([place]) (5-325 mg/tablet)Indications: Chronic knee pain after total replacement of right knee joint Take 1 Tablet by mouth 3 times daily if needed for Pain. 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 9 mg IArtic ONE TIME 12/19/2024 12/19/2024 Ended Active Problems Problem Noted Date Diagnosed Date Heart failure, unspecified H F chronicity, unspecified heart failure type 09/03/2024 Chronic kidney disease, stage IV (severe) 2023 Ascending aorta dilatation 09/18/2023 Anticoagulation monitoring, INR range 2-3 2019 Hyperparathyroidism due to renal insufficiency 0 04/22/2019 09/26/2022 Hypertensive renal disease 04/22/201909/26 Bilateral primary osteoarthritis of knee 019 09/26/2022 Overview (09/26/2022): Added automatically from request for surgery [id number] Primary osteoarthritis of right knee 03/26/2018 Overview (05/09/2018): October 2017: right knee cortisone injection by Dr. Lechuga, very good initial benefit. April 2018: Dr. Lechuga did Cortisone injection to bilateral knees. Vitamin D deficiency 06/13/2017 Adenomatous colon polyp 12/24/2014 Overview (12/24/2014): Colonoscopy 12/2014 polyp repeat in 5 years Pain medication agreement 10/28/2014 Overview (12/05/2024): INTAKE RN 12/05/2024 Assessment & Plan (01/29/2024 7:12 AM CDT): [facility] 01/29/2024 Assessment & Plan (01/01/2024 7:47 AM CDT): [facility] 01/01/2024 Pure hypercholesterolemia 03/04/2014 Stage 3b chronic kidney disease 02/27/2014 Tobacco abuse 02/27/2014 Paroxysmal atrial fibrillation 11/22/2012 Essential hypertension 08/17/2012 Primary osteoarthritis of left knee 08/17/2012 Overview (05/09/2018): S/P Surgery of left knee 2009. November 2017: Dr. Bobo gave hyaluronic acid injection? April 2018: Dr. Lechuga did Cortisone injection to bilateral knees. Encounters Date Type Department Care Team Description 01/03/2025 Anticoagulation (warfarin) [facility] [address] [place] [address] Nurse, Ace Anticoag Anticoagulation 01/02/2025 1:45 PM CDT Orders Only [facility] [address] [facility] [place] [address] Lab, [place] [facility] 01/02/2025 Travel 12/25/2024 Refill [facility] [address] [facility] [place] [address] Festus Larsen, Refill Request (Atorvastatin) 12/23/2024 Orders Only [facility] Scanner 1 scan: (1-Ord) ANIL KNOX, 12/23/2024 12/19/2024 9:00 AM CDT Procedure Only [facility] [address] [place] [address] Juan Wall MD Procedure (Right IT band injection with Gu... 12/18/2024 Travel 11/06/2024 10:45 AM CDT Orders Only [facility] [address] [place] [address] Lab, [place] [facility] 11/06/2024 Anticoagulation (warfarin) [facility] [address] [place] [address] Nurse, Ahg Anticoag Anticoagulation 11/05/2024 Travel from Last 3 Months Immunizations Immunization Administration Dates Next Due COVID-19 VACCINE SPIKEVAX (M ODERNA 50MCG/0.5ML) 12YO+ PFS 01/31/2023 COVID-19 vaccine ([employer]-Bio NTech 30mcg/0.3mL) 12YO+ CATHI-SUCROSE PF, MDV 01/11/2022 COVID-19 vaccine (Pfizer-Bio NTech 30mcg/0.3mL) PF, MDV 02/11/2021,07/10/2020,06/19/2020 Influenza Virus, Unspecified 01/15/2010 Influenza, IIV3 (Age >=3 years) 12/28/2011,01/15 Influenza, IIV4 03/09/2016 Influenza, Inactivated AIIV4 (Age 65+ Years) Preserv Free 01/31/2023,02/22/2022,02/11/2021,2020 Influenza, Inactivated IIV3 (Age 65+ Years) Preserv Free 04/18/2019,03/26/2018 Pneumococcal Conj 20-valent (Prevnar 20) 09/26/2022 Pneumococcal Poly,23-Valent (Pneumovax) 03/31/2006 Pneumococcal conj 13-Valent (Prevnar 13) 03/26/2018 Td (Age >=7 Years) 07/06/2009 Tdap 04/20/2023,07/06/2009 Zoster (Shingrix-RZV, recombinant) 04/20/2023,10 / Zoster (Zostavax-ZVL, live) 03/09/2016 Social History Tobacco Use Types Packs/Day Years Used Date Smoking Tobacco: Every Day Cigarettes 0.2 53.6 Started: 01/21/1970; Last attempted to quit: 08/28/2020 Smokeless Tobacco: Never Tobacco Cessation:Ready to Q uit: No; Counseling Given: Yes Comments:2-3 daily Alcohol Use Standard Drinks/Week Comments Yes 0 (1 standard drink = 0.6 oz pur e alcohol) once a week PHQ-2 Answer Date Recorded PHQ-2 TOTAL SCORE 0 12/01/2021 Social Connections Answer Date Recorded Do you often feel lonely or isolated from those around you? 0 09/18/2023 Financial Resource Strain Answer Date R ecorded Difficulty of Paying Living Expenses 3 09/18/2023 Difficulty of Paying Living Expenses Not on file 09/18/2023 Food Insecurity Answer Date Recorded Do you worry your food will run out before you are able to buy more? 1 09/18/2023 Transportation Needs Answer Date Record ed Does lack of transportation keep you from medica l appointments? 1 09/18/2023 Does lack of transportation keep you from work, meetings or getting things that you need? 1 09/18/2023 Housing Stability Answer Date Recorded What is your housing situation today? 1 09/18/2023 Utilities Answer Date Recorded Do you have trouble paying f or utilities (for example, heat, electricity, water, phone)? 1 09/18/2023 Sex and Gender Information Value Date Recorded Sex Assigned at Not on file Legal Sex Male 8:39 AM SOCK LINER Gender Identity Not on file Sexual Orientation Not on file Occupation Industry Job Start Date Job End Date retired Not on file Not on file Not on file Obstetrics History Last Filed Vital Signs Vital Sign Reading Time Taken Comments Blood Pressure 114/79 12/19/2024 9:07 AM CDT Pulse 85 12/19/2024 9:07 AM CDT Temperature 36.9 C (98.5 F) 12/19/2024 9:07 AM CDT Respiratory Rate - - Oxygen Saturation 98% 12/19/2024 9:07 AM CDT Inhaled Oxygen Concentration - - Weight 88.7 kg (195 lb 9.6 oz) 12/19/2024 9:07 A M CDT Height 180 cm (5' 10.87) 02/08/2024 9:05 AM CDT Body Mass Index 27.38 02/08/2024 9:05 AM CDT Plan of Treatment Upcoming Encounters Date Type Department Care Team (Late st Contact Info) Description 03/31/2025 2:30 PM SOCK LINER Office Visit [facility] [address] [place] [address] Win Chacon MD [address] [facility] [address] [place], [place] [id number] Health Maintenance Due Date Last Done Comments RSV vaccine for adults or (1 - Risk 60-74 years 1-dose series) 2012 Medicare Wellness for age 65+ 2017 Depression screening for age 12+ 12/01/2022 12/01/2021, 09/25/2020, 09/25/2020, Additional history exists COVID-19 vaccine series ( season) 2024 03/25/2024, 01/31/2023, 01/11/2022, Additional history exists Influenza Vaccine (#1) 2024 , 02/22/2022, 02/11/2021, Additional history exists BMI (ht and wt on same day) for age 18+ 02/07/2025 02/08/2024, 09/18/2023, 02/27/2023, Additional history exists Colonoscopy through age 75 08/11/202708/10, 08/10/2020, 12/23/2014 Lipids for age 45-75 09/17/2028 09/18/2023, 04/18/2019, 03/26/2018, Additional history exists Tetanus booster 04/20/2033 04/20/2023, 06/16, 07/06/2009 Hepatitis C screening for age 18-79 Completed 04/18/2019 Pneumococcal series for age 50+ Completed 09/26/2022, 03/26/2018, 03/31/2006 AAA screening age 65-74 Completed 10/04/2022 Zoster (shingles) series for age 50+ Completed 04/20/2023, 02/08/2023, 03/09/2016 Hepatitis B series for 19+ Aged Out N o longer eligible based on patient's age to complete this topic Procedures Procedure Name Priority Date/Time Associated Diagnosis Comments PROTIME-INR Routine 01/02/2025 2:43 PM CDT Paroxysmal atrial fibrillation (HC) Anticoagulation monitoring, INR range 2-3 SCAN-OPERATIVE/PRO CEDURE REPORT 12/23/2024 12:00 AM CDT INR,POCT Routine 11/06/2024 10:40 AM CDT Paroxysmal atrial fibrillation (HC) Anticoagulation monitoring, INR range 2-3 LIPID PANEL W REFLEX MEASURED LDL Routine 09/18/2023 11:12 AM CDT Pure hypercholesterolemia US ABD AORTA SCREENING Routine 10/04/2022 8:45 AM CDT Screening for AAA (aortic abdominal aneurysm) COLONOSCOPY SCREENING Routine 08/10/2020 12:00 AM CDT Adenomatous polyp of colon, unspecified part of colon ANTI HCV Routine 04/18/2019 11:19 AM SOCK LINER Need for hepatitis C screening test from Last 3 Months or Most Recently Relevant to Health Maintenance Results * (ABNORMAL) PROTIME-INR [[id number]] - Standing Order (01/02/2025 2:43 PM CDT) INR 2.6(H) <1.3 01/02/2025 10:19 PM CDT [facility] PROTIME 30.0(H) 10.6 - 12.4 sec 01/02/2025 10:19 PM CDT [facility] Blood BLOOD SPECIMEN / Unknown [facility] / Unknown 01/02/2025 2:43 PM CDT 01/02/2025 2:43 PM CDT Narrative [facility] - 01/02/2025 10:19 PM CDT Therapeutic Range 2.0-3.0 for most anticoagulated patients 2.5-3.5 or 4.0 for high risk patients The INR is only used for patients on stable oral anticoagulant therapy. It makes no significant contribution to the diagnosis or treatment of patients whose Protime is prolonged for other reasons. INR results are increased when heparin levels exceed 1.0 U/mL, which corresponds to an aPTT >125 seconds if the patient is on UFH. us [employer] DO HEMATOLOGY Final Result Performing Organization Address City/[facility]/ZIP Co de Phone Number [facility] [address] [place] [address], [place] * SCAN-OPERATIVE/PROCEDURE REPORT (12/23/2024 12:00 AM CDT) us Scanner OTHER Final Result * (ABNORMAL) INR - POCT [[id number]] - Standing Order (11/06/2024 10:40 AM CDT) INR 2.2(H) ratio [facility] Comment: INRs >2.9 may be falsely elevated in patients receiving either unfractionated Heparin or Low Molecular Weight Heparin. Follow up testing in a hospital laboratory may be helpful if clinically indicated. INR results of > or = 5.0 should be verified using the standard venipuncture procedure. Reference Range 0.9-1.1 Moderate-intensity Warfarin Therapy 2.0-3.0 Higher-intensity Warfarin Therapy 3.0-4.0 PROTHROMBIN TIMEP 26.3(H) 10.5 - 13.[address] [facility] Comment: Point of care fingerstick Prothrombin Time/INR results may vary from venous Prothrombin Time/INR methodologies. Any results exhibiting inconsistency with the patient's clinical status should be repeated using a venous Prothrombin Time/INR method. Blood BLOOD SPECIMEN / Unknown 11/06/2024 10:40 AM CDT 11/06/2024 10:41 AM CDT us [employer] DO LABORATORY Final Result Performing Organization Address City/[facility]/ZIP Co de Phone Number [facility] [address] [place] [address], [facility] [address] [place] [address] * LIPID PANEL W REFLEX MEASURED LDL (09/18/2023 11:12 AM CDT) CHOLESTEROL,TOTAL 121 100 - 199 mg/dL 09/19/2023 7:43 AM CDT [facility] Comment: Cholesterol, Total Reference Ranges Desirable <200 mg/dL Borderline 200-239 mg/dL High >=240 mg/dL TRIGLYCERIDES 120 <150 mg/dL 09/19/2023 7:43 AM CDT [facility] HDL CHOLESTEROL 42 >40 mg/dL 7:43 AM CDT [facility] NON-HDL CHOLESTEROL 79 <145 mg/dl 09/19/2023 7:43 AM CDT [facility] CHOL/HDL RATIO 2.88 <4.50 09/19/2023 7:43 AM CDT [facility] LDL CHOLESTEROL 55 <=130 mg/dL 09/19/2023 7:43 AM CDT [facility] VLDL CHOLESTEROL 24 <=30 mg/dL 09/19/2023 7:43 AM CDT [facility] PROVIDER ORDERED STATUS RANDOM 09/19/2023 7:43 AM CDT [facility] Blood BLOOD SPECIMEN / Unknown Venipuncture / Unknown 09/18/2023 11:12 AM CDT 09/18/2023 11:12 AM CDT us Festus Larsen DO CHEMISTRY Final Result [facility] [address] [place] [address], [place] * US ABD AORTA SCREENING [[id number]] (10/04/2022 8:45 AM CDT) Anatomical Region Laterality Modality Abdomen, AORTA Ultrasound 10/04/2022 10:3 4 AM CDT Impressions 10/04/2022 10:34 AM CDT Normal sonographic assessment of the abdominal aorta. Dictated by Peter Jackson MD @ Gustavo 2022 10:34AM (Electronically Signed) Narrative 10/04/2022 10:34 AM CDT For Patients: As a result of the Cures Act, medical imaging exams and procedure reports are released immediately into your electronic medical record. You may view this report before your referring provider. If you have questions, please contact your health care provider. INDICATION: Abdominal aortic aneurysm screen. COMPARISON: None. TECHNIQUE: Lambert scale and color Doppler images were acquired of the abdominal aorta and proximal common iliac arteries. FINDINGS: Sonographic imaging demonstrates a normal appearance of the abdominal aorta. There is no evidence of aneurysm formation or aortic dissection. Proximally, the aorta measures 2.8 x 2.3 cm in AP and transverse diameter, mid 2.1 x 2.2 cm, and distally tapers to a measurement of 1.9 x 1.8 cm. The common iliac arteries are patent and measure 1.6 x 1.2 cm on the left and 1.7 x 1.5 cm in diameter on the right. There are no suspicious periaortic masses. Procedure Note Peter Jackson MD - 10/04/2022 For Patients: As a result of the Cures Act, medical imagingexams and procedure reports are released immediately into your electronicmedical record. You may view this report before your referring provider.If you have questions, please contact your health care provider. INDICATION: Abdominal aortic aneurysm screen. COMPARISON: None. TECHNIQUE: Lambert scale and color Doppler images were acquired of the abdominal aortaand proximal common iliac arteries. FINDINGS: Sonographic imaging demonstrates a normal appearance of the abdominalaorta. There is no evidence of aneurysm formation or aortic dissection.Proximally, the aorta measures 2.8 x 2.3 cm in AP and transverse diameter,mid 2.1 x 2.2 cm, and distally tapers to a measurement of 1.9 x 1.8 cm.The common iliac arteries are patent and measure 1.6 x 1.2 cm on the leftand 1.7 x 1.5 cm in diameter on the right. There are no suspiciousperiaortic masses. IMPRESSION: Normal sonographic assessment of the abdominal aorta. Dictated by Peter Jackson MD @ Oct 04 2022 10:34AM (Electronically Signed) Festus Larsen DO US Final Result * COLONOSCOPY SCREENING (08/10/2020 12:00 AM CDT) Dinh Steven MD GI PROCEDURE ORD Final R esult * ANTI HCV (04/18/2019 11:19 AM SOCK LINER) HEPATITIS C ANTIBODY Non-React gavin Non-React gavin 04/18/2019 5:15 PM SOCK LINER [facility] Comment:Antibodies to HCV no t detected; does not exclude the possibility of exposure to HCV. Blood BLOOD SPECIMEN / Unknown Venipuncture / Unknown 04/18/2019 11:19 AM SOCK LINER 04/18/2019 11:22 AM SOCK LINER Dinh Steven MD SEND OUTS Final Re sult [facility] [address] [place] [address], [place] from Last 3 Months or Most Recently Relevant to Health Maintenance Insurance [employer] BLUE MR PB ONLY [employer] ASSINIBO[employer] TRI[employer] BLUE HB ONLY MEDICARE PART B HB ONLY MEDICARE PART A HB ONLY [facility] [address] [place], [place] [address] [place] [phone] Care Teams Sales Operations Consultant Relationship Specialty Start Date End Date Festus Larsen DO [facility] [address] [place], [place] [id number] PCP - General Family Practice 09/26/22
--- OUTSIDE RECORDS SUMMARY | 2025-01-09 19:00 | XMS_ITS | Encounter Summary ---
Author Organization [facility] Address [address] [place] [address] Care Team Providers Care Batch Trucker Name Role Phone Festus Larsen DO Primary Care Provider [phone] Encounter Details Date Type Department Care Team (Late Contact Info) Description 03/20/2020 Orders Only [facility] [place] [address] [place] [address] Cm Griffin MD [address] [place], [place] [address] Chronic kidney disease stage 3; Hypertensive renal disease; Hyperparathyroidism due to renal insufficiency (HCC) Social History Tobacco Use Types Packs/Day Years Used Date Smoking Tobacco: Every Day Cigarettes Smokeless Tobacco: Never Alcohol Use Standard Drinks/Week Comments Not Currently 0 (1 standard drink = 0.6 oz pure [...] Encounters Date Type Department Care Team (Late Contact Info) Description 01/10/2025 1:40 PM CDT Office Visit [facility] [address] [place] [phone] Cm Griffin MD [address] [place] [address] documented as of this encounter Procedures Procedure Name Priority Date/Time Associated Diagnosis Comments HEMOGLOBIN Routine 04/23/2020 Chronic kidney disease stage 3 Hypertensive renal disease PTH, INTACT Routine 04/23/2020 Chronic kidney disease stage 3 Hyperparathyroidism due to renal insufficiency (HCC) RENAL FUNCTION PANEL Routine 04/23/2020 Chronic kidney disease stage 3 Hypertensive renal disease documented in this encounter Results * Hemoglobin (04/23/2020) Hemoglobin 14.1 13.5 - 17.5 PRINT/E XTERNAL (NON-INTERFACED LABS) MCV 94.0 82.0 - 108.0 PRINT/EXTERNAL (NON-INTERFACED LABS) Blood specimen (specimen) Venous blood / Unknown 04/23/2020 Cm Griffin MD LAB BLOOD ORDERABLES Final Resul t Performing Organization Address City/[facility]/ZIP Co de Phone Number PRINT/EXTERNAL (NON-INTERFACED LABS) * PTH, intact (04/23/2020) Parathyroid Hormone, Intact 71.1 pg/mL PRINT/FISCAL ANALYST AL (NON-INTERFACE D LABS) Calcium 9.0 8.7 - 10.7 mg/dL PRINT/EXTERNAL (NON-INTERFACE D LABS) Blood specimen (specimen) Venous blood / Unknown 04/23/2020 Cm Griffin MD LAB BLOOD ORDERABLES Final Resul t PRINT/EXTERNAL (NON-INTERFACED LABS) * (ABNORMAL) Renal function panel (04/23/2020) Glucose 86 mg/dL PRINT/EXTE RNA L (NON-INTERFAC ED LABS) BUN 34(H) mg/dL PRINT/EXTE RNA L (NON-INTERFAC ED LABS) Creatinine 2.10(H) mg/dL PRINT/EXT KELSIE L (NON-INTERFAC ED LABS) BUN/Creatinine Ratio 16 PRINT/EXTERNA L (NON-INTERFAC ED LABS) Sodium 144 mEq/L PRINT/EXTE RNA L (NON-INTERFAC ED LABS) Potassium 4.8 mEq/L PRINT/EXTE RNA L (NON-INTERFAC ED LABS) Chloride 106 PRINT/EXTE RNA L (NON-INTERFAC ED LABS) Carbon Dioxide 28 mmol/L PRINT /EXTERNA L (NON-INTERFAC ED LABS) Calcium 9.4 mg/dL PRINT/EXTE RNA L (NON-INTERFAC ED LABS) Phosphorus, Serum 3.0 mg/dL PRINT/EXTERNA L (NON-INTERFAC ED LABS) Albumin (Blood) 4.2 g/dL PRIN T/EXTERNA L (NON-INTERFAC ED LABS) eGFR Non-Afr Palestinian 32(L) PRINT/EXTERNA L (NON-INTERFAC ED LABS) eGFR 38(L) PRINT/EXTERNA L (NON-INTERFAC ED LABS) Blood specimen (specimen) Venous blood / Unknown 04/23/2020 us Cm Griffin MD LAB BLOOD ORDERABLES Final Resul t PRINT/EXTERNAL (NON-INTERFACED LABS) documented in this encounter Visit Diagnoses Diagnosis Chronic kidney disease stage 3 (HCC) Hypertensive renal disease Hyperparathyroidism due to renal insufficiency (HCC) documented in this encounter Care Teams Batch Trucker Relationship Specialty Start Date End Date Festus Larsen DO [address] [place] [address] PCP - General Family Medicine 03/22/23 documented as of this encounter
--- OUTSIDE RECORDS SUMMARY | 2025-01-09 19:00 | XMS_ITS | Encounter Summary ---
Author Organization [facility] Address [address] [place] [address] Care Team Providers Care Health Advocate Name Role Phone Festus Larsen DO Primary Care Provider Encounter Details Date Type Department Care Team ([facility] Contact Info) Description 12/27/2019 Orders Only [facility] [place] [address] [place] [address] Cm Griffin MD [address] [place], [place] [address] Chronic kidney disease stage 3 (HCC); Hypertensive renal disease; Hyperparathyroidism due to renal [...] Upcoming Encounters Date Type Department Care Team ([facility] Contact Info) Description 01/10/2025 1:40 PM CDT Office Visit [facility] [place] [address] [place] [phone] Cm Griffin MD [address] [place] [address] documented as of this encounter Visit Diagnoses Diagnosis Chronic kidney disease stage 3 (HCC) Hypertensive renal disease Hyperparathyroidism due to renal insufficiency (HCC) documented in this encounter Care Teams Health Advocate Relationship Specialty Start Date End Date Festus Larsen DO [address] [place] [address] PCP - General Family Medicine 03/22/23 documented as of this encounter
--- OUTSIDE RECORDS SUMMARY | 2025-01-09 19:01 | XMS_ITS | Patient Health Record ---
Author Organization 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 Role Phone Festus Larsen Primary Care Provider RAYSHAWN Fernández Unavailable [phone] Allergies Allergen (clinical drug ingredient) Drug/Non Drug Allergy documented on EMR Reaction Allergy Type Onset Date Status ibuprofen Ibuprofen (uncoded) Unknown Allergy Active Non-steroidal anti-inflammatory agent (FN) NSAIDs Unknown Drug Allergy Active Results Component Value Reference Range Notes CT Scan : Soft Tissue Neck W Reviewed date:09/24/2024 05:22:30 PM Interpretation: Performing Lab: Notes/Report: CT Scan : Chest W Reviewed date:09/24/2024 05:22:30 PM Interpretation: Performing Lab: Notes/Report: Reason For Referral Reason treatment of glottic SCCA [id number] [facility] [place] [phone] Diagnosis 1 Lesion of glottis (J 38.7) Referral Organization [facility] Referring Provider First Name RAYSHAWN Referring Provider Last Name BLANK Referring Provider Speciality Otolaryngo logy Referred Provider Specialty Radiation On cology Referral Priority Routine Medications Medication SIG (Take, Route, Frequency, Duration) Notes Start Date End Date Status NIFEdipine ER Osmotic Release 30 MG Tablet Extended Release 24 Hour Oral; Duration: 90 Days Active Atorvastatin Calcium 20 MG Tablet Oral; Duration: 90 Days Acti ve cloNIDine HCl 0.2 MG Tablet Oral; Duration: 90 Days Active Amiodarone HCl 200 MG Tablet Oral; Duration: 90 Days Acti ve Metoprolol Tartrate 100 MG Tablet Oral; Duration: 90 Days Acti ve Warfarin Sodium 2 MG Tablet Oral; Duration: 90 Days Active Social History Tobacco Use: Social History Observation Description Date Details (start date - stop date) Current Smoker NA - NA Social History Drug/Alcohol: Social Info Question Answer Notes AUDIT-C (Standard) Did you have a drink containing alcohol in the past year? Yes How often did you have a drink containing alcohol in the past year? 2 to 3 times a week (3 points) How many drinks did you have on a typical day when you were drinking in the past year? 1 or 2 drinks (0 point) How often did you have six or more drinks on one occasion in the past year? Never (0 point) Points 3 Interpretation Negative Tobacco Use: Social Info Question Answer Notes Tobacco Control (Standard) Tobacco use: Current smoker How many cigarettes a day do you smoke? 6-10 How soon after you wake up do you smoke your first cigarette? 31-60 minutes Are you interested in quitting? 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 Problem Lesion of glottis (J38.7) Active confirmed Vital Signs Height-cm 180.34 cm 09/19/2024 Weight-kg 94.8 kg 09/19/2024 Height 71 in 09/19/2024 Weight 209 lbs 09/19/2024 BMI 29.15 kg/m2 09/19/2024 Encounters Encounter Location Date Provider Diagnosis [facility] [address] [place] [address] 08/22/2024 RAYSHAWN PARSON Lesion of glottis J38.7 and Hoarse R49.0 [facility] [address] [id number] 09/11/2024 RAYSHAWN PARSON [facility] [address] [place] [address] 09/19/2024 RAYSHAWN PARSON Glottis carcinoma C32.0 [facility] [address] [place] [address] 09/12/2024 RAYSHAWN PARSON [facility] [address] [place] [address] 09/12/2024 RAYSHAWN PARSON [facility] [address] [place] [address] 09/24/2024 RAYSHAWN PARSON [facility] [place] [address] [place] [address] 09/13/2024 RAYSHAWN PARSON [facility] [place] [address] [place] [address] 09/16/2024 RAYSHAWN PARSON Assessments Encounter Date Diagnosis (ICD Code) Assessment Notes Treatment Notes Treatment Clinical Notes Section Notes 08/22/2024 Hoarse (ICD-10 - R49.0) 08/22/2024 Lesion of glottis (ICD-10 - J38.7) He has diffuse thickening and abnormal appearance of the glottis which is concerning for suspected squamous cell carcinoma of the larynx. He is educated that the neck step is to get a biopsy of his vocal cords to make the diagnosis. I also discussed that I am not entirely certain that he has cancer but that that is my suspicion. Strongly recommend he quit smoking. Recommend CT scan of the neck and chest for further staging as well as screening for primary lung cancer given this long history of smoking. If he does have cancer that is an early stage currently and appears like a T1BN0 glottic tumor. Explained that if confirmed cancer would refer him to radiation therapy for external beam treatment. Overall survival rates are very high with T1 disease. 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 We got the diagnosis during the surgery with frozen section analysis and so he he has already been referred to radiation oncology for radiation therapy. He has appointments with them. He has a CT scan of the neck and chest scheduled with [place] [facility]. I explained that he will need to have a post treatment appointment with me to perform laryngoscopy and check results from radiation therapy and then we will need surveillance over years. He is trying to quit smoking. 08/22/2024 Other Body mass index material was published Plan Of Treatment No Information Insurance Providers Payer Name Payer Address Payer Phone Subscriber Number Group Number Insured Name Patient Relationship to Insured Coverage Start Date Coverage End Date [employer] [place] [employer]ICARE [address] [address] [place], [place] [id number] Quique Bishop Self - patient is the insured MEDICARE [address] [place] [address] [id number] Quique Bishop Self - patient is the insured 8 Medical (General) History Medical History History ICD Code heart disease Hypertension Surgical History Surgery Date(Month/Year) knee replacement 2020 [id number] Knee Replacement 10/20/2021 Knee Replacement 09/22/2020 /Juan J w/biopsies, rigid esophagoscopy BD 09/11/2024
--- OUTSIDE RECORDS SUMMARY | 2025-01-09 19:01 | XMS_ITS | Encounter Summary ---
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 Role Phone Festus Larsen DO Primary Care Provider Encounter Details Date Type Department Care Team ([facility] Contact Info) Description 10/09/2019 Orders Only [facility] [address] [place] [address] Cm Griffin MD [address] [place], [place] [address] Chronic kidney disease stage 3 (HCC); Hypertensive [...] Upcoming Encounters Date Type Department Care Team ([facility] Contact Info) Description 01/10/2025 1:40 PM CDT Office Visit [facility] [address] [place] [id number] Cm Griffin MD [address] [place] [address] documented as of this encounter Visit Diagnoses Diagnosis Chronic kidney disease stage 3 (HCC) Hypertensive renal disease 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
[2025-01-09 19:06] VITALS: BP 135/82; PULSE 92; RESP 18; TEMP 36.4; O2SAT 98
--- NOTE | 2025-01-09 19:13 | ED.GENADULT ---
HPI - General Adult General Chief complaint: Skin/Abscess/Foreign Body Stated complaint: fish hook caught in hand Time Seen by Provider: 01/09/25 19:03 Source: patient Mode of arrival: ambulatory Limitations: no limitations History of Present Illness HPI narrative: 74-year-old male presenting with a fishhook caught on the pad of the ring finger on the right. He states that his tetanus shot is up-to-date. Related Data Home Medications ?Medication ?Instructions ?Recorded ?Confirmed amiodarone 200 mg tablet mg PO 01/09/25 atorvastatin 20 mg tablet 20 mg PO DAILY 01/09/25 01/09/25 clonidine HCl 0.2 mg tablet PO 01/09/25 hydrocodone 5 mg-acetaminophen 325 1 tab PO 3XD PRN 01/09/25 01/09/25 mg tablet lorazepam 1 mg tablet 1 mg PO BID 01/09/25 01/09/25 metoprolol tartrate 100 mg tablet 100 mg PO BID 01/09/25 01/09/25 nifedipine 30 mg tablet,extended PO 01/09/25 release 24 hr warfarin 2 mg tablet PO 01/09/25 Previous Rx's ?Medication ?Instructions ?Recorded amoxicillin 875 mg-potassium 1 tab PO BID 5 days #10 tabs 01/09/25 clavulanate 125 mg tablet Allergies Allergy/AdvReac Type Severity Reaction Status Date / Time ibuprofen (From Advil) Allergy Verified 01/09/25 19:04 ketorolac Allergy Verified 01/09/25 19:04 Review of Systems Status of ROS: Reports: 6 or more systems reviewed and unremarkable except as noted in History and below Exam Narrative: Exam Narrative: Well-nourished well-developed patient in no acute distress. Alert and oriented. Answers questions appropriately. HEENT: Normocephalic atraumatic. Extraocular muscles are intact. Conjunctivae are moist without any icterus noted. Moist mucous membranes. Extremities: [place] on the pad of the ring finger on the right, end of in is sticking out. Skin: Well perfused. Const: Vital Signs, click to edit/add: Vital Signs - 24 hr 01/09/25 19:06 Temperature 97.6 F Pulse Rate [Pulse Oximeter] 92 Respiratory Rate 18 Blood Pressure [Ri ght Upper Arm] 135/82 Pulse Oximetry 98 Oxygen Delivery Me thod Room Air Course Course ED Course: Finger was cleaned. pad of the finger was anesthetize with lidocaine. [place] was cut with wire cutters and pulled out without difficulty. Finger was cleaned once again. Tdap was updated in 2023. Vital Signs Vital signs: Initial Vital Signs Temperature 97.6 F 01/09/25 19:06 Temperature Source Temporal Artery Scan 01/09/25 19:06 Pulse Rate 92 01/09/25 19:06 Respiratory Rate 18 01/09/25 19:06 Blood Pressure 135/82 01/09/25 19:06 Blood Pressure Mean 99 01/09/25 19:06 Pulse Oximetry 98 01/09/25 19:06 Oxygen Delivery Method Room Air 01/09/25 19:06 Vital Signs Temperature 97.6 F 01/09/25 19:06 Pulse Rate 92 01/09/25 19:06 Respiratory Rate 18 01/09/25 19:06 Blood Pressure 135/82 01/09/25 19:06 Pulse Oximetry 98 01/09/25 19:06 Oxygen Delivery Method Room Air 01/09/25 19:06 Temperature 97.6 F 01/09/25 19:06 Pulse Rate 92 01/09/25 19:06 Respiratory Rate 18 01/09/25 19:06 Blood Pressure 135/82 01/09/25 19:06 Pulse Oximetry 98 01/09/25 19:06 Oxygen Delivery Method Room Air 01/09/25 19:06 Medical Decision Making MDM Narrative Medical decision making narrative: 74-year-old male presenting with a fishhook in his finger. Treated per above. We will place the patient on Augmentin for 5 days. Discharge Plan Discharge Clinical Impression: [place] injury to finger Patient Disposition: Home, Self-Care Condition: Improved Additional Instructions: take all antibiotics as prescribed. Follow-up with your physician as needed. Prescriptions: New amoxicillin-pot clavulanate 875-125 mg tablet 1 tab PO BID 5 Days Qty: 10 0RF No Action amiodarone 200 mg tablet PO nifedipine 30 mg tablet extended release 24hr PO atorvastatin 20 mg tablet 20 mg PO DAILY metoprolol tartrate 100 mg tablet 100 mg PO BID hydrocodone-acetaminophen 5-325 mg tablet 1 tab PO 3XD PRN clonidine HCl 0.2 mg tablet PO warfarin 2 mg tablet PO lorazepam 1 mg tablet 1 mg PO BID Follow Up/Referrals: SHAQRA,ADEI, DO [Primary Care Provider, Family Practice] Stand Alone Forms: MyHealth Info Instructions
== END 2025-01-09 19:25 | disposition home or self-care (01) ==
LOC: ED 19:17
PROVIDERS: Emergency Provider Family Medicine; PCP Student in an Organized Health Care Education/Training Program
DX: S61.244A Puncture wound with foreign body of right ring finger without damage to nail, initial encounter (principal); Y93.19 Activity, other involving water and watercraft
CPT/HCPCS: 10120; 99283; 99284

== ENCOUNTER 2025-03-04 08:29 | Outpatient (CLI) | payer MEDICARE, BC, SELFPAY ==
--- NOTE | 2025-03-04 09:00 | CRLHL7_ITS ---
For Patients: As a result of the Century Cures Act, medical imaging exams and procedure reports are released immediately into your electronic medical record. You may view this report before your referring provider. If you have questions, please contact your health care provider. INDICATION: malignant neoplasm of larynx COMPARISON: 09/23/2024 TECHNIQUE: A CT volumetric acquisition was performed of the neck during intravenous infusion of 95 cc Isovue 370 nonionic intravenous contrast. Please note that all CT scans at this facility use dose modulation, iterative reconstruction, and/or weight-based dosing when appropriate to reduce radiation dose to as low as reasonably achievable. FINDINGS: Thyroid is unremarkable. Visualized lungs are clear. No cervical or upper thoracic adenopathy. Similar lobular appearance of the salivary glands. Stable appearance of the sinuses. Brain parenchyma appears unremarkable. Orbits are normal. Normal epiglottis. Soft palate unremarkable. Retropharyngeal soft tissues are unremarkable. Mild fullness of the layering soft tissues noted without discernible mass lesion. Degenerative disc disease C4-5. IMPRESSION: Mild the fornix of the laryngeal soft tissues without discernible mass or fluid collection. No cervical adenopathy. Essentially stable exam compared to the prior study. Please note that all CT scans at this facility use dose modulation, iterative reconstruction, and/or weight-based dosing when appropriate to reduce radiation dose to as low as reasonably achievable. Dictated by Win Martin MD @ 03/04/2025 3:35:23 PM (Electronically Signed)
[2025-03-04 09:04] LABS: Creatinine* 2.0 mg/dL (0.5-1.5); Estimated Glomerular Filt Rate 35 ml/min
== END 2025-03-04 08:30 | disposition home or self-care (01) ==
LOC: CT 08:30
PROVIDERS: PCP Student in an Organized Health Care Education/Training Program; Visit Provider Nurse Practitioner
DX: C32.9 Malignant neoplasm of larynx, unspecified (principal)
CPT/HCPCS: 36415; 70491; 82565; Q9967